=== PATIENT | male | born 1940 | race Caucasian/White ===

== ENCOUNTER 2018-06-30 08:48 | Outpatient (REF) | payer OTHER, SELFPAY ==
[2018-06-30 12:52] LABS: HCT 45.1 % (40.0-50.0); HGB 14.9 g/dL (13.5-17.5); Mean Corpuscular Hemoglobin 32.4 pg (27.0-33.0); Mean Platelet Volume 10.8 fL (8.0-11.0); Platelet Count 229 x1000/uL (130-400); RBC Distribution Width 12.7 % (11.8-14.1); White Blood Cell Count 6.94 k/cumm (4.4-10.8)
[2018-06-30 13:22] LABS: ALT 52 U/L (12-78); AST 42 U/L (15-37); Alkaline Phosphatase 97 U/L (46-116); Anion Gap 7.8 mmol/L (3-11); BUN 22 mg/dL (7-18); Bilirubin, Total 0.8 mg/dL (0.2-1.0); CO2 29.2 mmol/L (21.0-32.0); CREATININE 1.13 mg/dL (0.70-1.30); Calcium 9.5 mg/dL (8.5-10.1); Chloride 105 mmol/L (98-107); Cholesterol 229 mg/dL (50-200); Glucose 94 mg/dL (70-100); HDL Cholesterol 66 mg/dL (40-60); LDL CHOLESTEROL 126 mg/dL (<100); Potassium 4.6 mmol/L (3.5-5.1); Sodium 142 mmol/L (136-145); TSH (W/Ref FT4) 3.31 uIU/mL (0.358-3.74); Total Protein 7.4 g/dL (6.4-8.2); Triglyceride 157 mg/dL (30-150)
== END 2018-06-30 09:08 ==
LOC: NCHCN 08:48
PROVIDERS: PCP Family Medicine; Visit Provider Family Medicine
DX: E03.9 Hypothyroidism, unspecified (principal)
CPT/HCPCS: 80053; 80061; 83721; 85027; 84443

== ENCOUNTER → 2019-03-15 09:46 | Outpatient (BNVA) | payer MEDICARE, SELFPAY | PROVIDERS: PCP Family Medicine; Referring Provider Family Medicine; Visit Provider Student in an Organized Health Care Education/Training Program | DX: M65.332 Trigger finger, left middle finger (principal); M65.321 Trigger finger, right index finger | CPT/HCPCS: 99203; 99214 ==

== ENCOUNTER 2019-04-20 09:49 | Day surgery (SDC) | payer MEDICARE, SELFPAY ==
[2019-04-20 09:55] VITALS: BP 114/101; PULSE 58; RESP 16; TEMP 36.5; O2SAT 96
--- NOTE | 2019-04-20 12:28 | W.PM.DSUDISC ---
Discharge Plan Disposition Patient Disposition: HOME Condition: Good Discharge Details Reason For Visit: LMF trigger finger release Attending Provider: Heraclio Valera Primary Care Provider: Roxane Marti Home Meds and New Rx's Prescriptions: New acetaminophen 500 mg tablet 500 mg PO Q6H PRNQty: 60 RF: 0 Continued calcium carb and citrate-vitD3 1 EACH tablet extended release 1 ea PO BID RF: 0 ibuprofen 800 MG tablet 800 mg PO BID PRNQty: 180 RF: 1 levothyroxine 25 MCG tablet 25 mcg PO DAILY@0730 RF: 0 ascorbic acid (vitamin C) [Vitamin C] 500 MG tablet 1 tab PO DAILY RF: 0 glucosamine sulfate 2KCl 1,000 MG tablet 1 cap PO DAILY RF: 0 Depauw Oil-1000 1 EACH capsule 1 cap PO DAILY RF: 0 vitamin U17-jucow acid 1 EACH tablet 1 tab PO DAILY RF: 0 Discharge Instructions Stand Alone Forms: Moraima Amor Finger Release Referrals: Heraclio Valera MD [ [facility] STAFF PHYSICIAN] - Activity:: Activity as Tolerated Remove Dressings/Wound Care:: 48 hours Shower/Bathe:: 48 hours Diet:: As Tolerated Discharge Orders Discharge Orders: Discharge Order (Routine); Ordered 04/20/19 Ordered By: Elbert Otero DS: Diagnosis Discharge Diagnosis (1) Trigger finger, left middle finger: Status: Acute
[2019-04-20] MEDS: Sodium Bicarbonate 50 MEQ/50 ML VIAL (12:50)
[2019-04-20] MEDS: Lidocaine 1% Multi-Dose 50 ML VIAL (12:50)
[2019-04-20] MEDS: Bupivacaine 0.5% Pres-Free 30 ML VIAL (12:59)
--- NOTE | 2019-04-20 20:59 | W.PM.OP ---
Date of service: 04/20/19 Time of Service: 12:59 Operative Note DATE OF PROCEDURE: 04/20/19 PRE-OP DIAGNOSIS: Trigger Finger -right index finger POST-OP DIAGNOSIS: same PROCEDURE: Trigger Finger Release -right index finger SURGEON: Heraclio Valera ANESTHESIA: local PATHOLOGY: none sent COMPLICATIONS: None Patient was transported to: same day Patient's condition: stable Indications: I have seen John Paul in clinic for symptoms of a trigger finger. The catching, clicking, locking, and pain limited function. Over the last month or so he had lost the ability to flex and extend the digit. The diagnosis of trigger finger was evident. The symptoms had not responded to conservative measures. I discussed trigger finger release with the patient. I reviewed the risks of the procedure to include, but not limited to, bleeding, infection, pain, stiffness, incomplete release, damage to nerves or vessels, continued catching, recurrence. Despite these risks, the patient elected to proceed. Findings: There was a tightened A1 nivia which was released. There was a large amount of fluid within the flexor tendon sheath. The flexor tendons were inspected and the patient was able to move the finger without any catching, clicking, or locking. Procedure Description: John Paul was greeted in the preoperative holding area where the correct side was identified and marked. The consent was reviewed with the patient and signed. All questions were answered. John Paul was taken back to the operating room. The patient was placed into the supine position on the operating room table with the right arm on an arm board. All bony prominences were well padded. No prophylactic antibiotics were administered since this was a clean, elective hand surgical case. The right arm was then prepped with Chloraprep and draped in a standard fashion with stockinette and extremity drape. A timeout to confirm correct identity, side and site, procedure, allergies, anesthesia, and medical concerns was performed. The surgical site was marked as a longitudinal incision directly over the A1 nivia of the involved digit. This was confirmed with palpation during finger flexion. This area, overlying the metacarpal head, was then anesthetized with 1% Lidocaine. The patient tolerated this well and once the anesthetic had setup, the procedure began. A longitudinal incision was made through skin only, approximately 1cm. The deep tissues were dissected bluntly. Once the A1 nivia and flexor tendons were identified the soft tissue including neurovascular structures were retracted medially and laterally. There were no crossing structures over the A1 nivia. The proximal edge of the nivia was identified and the nivia was incised with tenotomy scissors. There was a release of the tendons once this was fully released. The tendons were then removed from the wound and inspected. Excess synovium was resected. The tendons were then returned and the patient was asked to move the finger into deep flexion and back to extension. There was no recreation of the pre-operative symptoms. The hand was then once more inspected for any A0 nivia or area of possible constriction. The wound was then irrigated and the skin was closed with a 4-0 Nylon. This was dressed with gauze and a Conform dressing. The patient tolerated the procedure well and was returned to the Same Day Surgery area in a stable condition suffering no known complication.
== END 2019-04-20 13:25 | disposition home or self-care (01) ==
PROVIDERS: PCP Family Medicine; Visit Provider Student in an Organized Health Care Education/Training Program
PROC: (CPT 26055; principal; 2019-04-20 11:00)
DX: M65.321 Trigger finger, right index finger (principal)
CPT/HCPCS: 26055

== ENCOUNTER → 2019-04-28 15:20 | Outpatient (BNVA) | payer MEDICARE, SELFPAY | PROVIDERS: PCP Family Medicine; Referring Provider Family Medicine; Visit Provider Student in an Organized Health Care Education/Training Program | DX: M65.321 Trigger finger, right index finger (principal); Z47.89 Encounter for other orthopedic aftercare; R20.0 Anesthesia of skin | CPT/HCPCS: 99213; L3908 ==

== ENCOUNTER → 2019-05-12 09:57 | Outpatient (BNVA) | payer MEDICARE, SELFPAY | PROVIDERS: PCP Family Medicine; Visit Provider Nurse Practitioner Adult Health | DX: G56.03 Carpal tunnel syndrome, bilateral upper limbs (principal); G62.9 Polyneuropathy, unspecified; G56.23 Lesion of ulnar nerve, bilateral upper limbs | CPT/HCPCS: 95911; 99203; 99214 ==

== ENCOUNTER 2019-05-12 11:29 | Outpatient (CLI) | payer MEDICARE, SELFPAY ==
[2019-05-12 13:14] LABS: Hemoglobin A1C 5.7 % (4.5-6.2); TSH 2.49 uIU/mL (0.36-3.74); Vitamin B12 538 pg/mL (193-986)
[2019-05-13 12:31] LABS: Albumin 63.7 % (55.8-66.1); Total Protein 7.2 g/dl (6.3-8.2)
== END 2019-05-12 11:49 ==
PROVIDERS: PCP Family Medicine; Visit Provider Nurse Practitioner Adult Health
DX: G62.9 Polyneuropathy, unspecified (principal); G56.03 Carpal tunnel syndrome, bilateral upper limbs; G56.23 Lesion of ulnar nerve, bilateral upper limbs
CPT/HCPCS: 36415; 95911; 99214; 82607; 83036; 84165; 84443

== ENCOUNTER 2020-05-11 09:32 | Outpatient (REF) | payer MEDICARE, SELFPAY ==
[2020-05-11 20:53] LABS: HCT 43.5 % (40.0-50.0); HGB 14.3 g/dL (13.5-17.5); MCH 32.2 pg (27.0-33.0); MCHC 32.9 % (32.0-36.0); MPV 10.8 fL (8.0-11.0); Platelet Count 218 10^3/uL (130-400); RBC 4.44 10^6/uL (4.36-5.78); RDW 11.7 % (11.8-14.1); RDW-SD 42.4 fL; WBC 6.08 10^3/uL (4.4-10.8)
[2020-05-11 21:13] LABS: ALT 21 U/L (16-63); AST 21 U/L (15-37); Alkaline Phosphatase 75 U/L (46-116); Anion Gap 6.2 mmol/L (3-11); BUN 25 mg/dL (7-18); CO2 27.8 mmol/L (21.0-32.0); CREATININE 0.97 mg/dL (0.70-1.30); Calcium 8.9 mg/dL (8.5-10.1); Calculated LDL 96 mg/dL (<100); Chloride 105 mmol/L (98-107); Cholesterol 175 mg/dL (<200); Glucose 100 mg/dL (74-106); HDL Cholesterol 57 mg/dL (40-60); Potassium 4.2 mmol/L (3.5-5.1); Sodium 139 mmol/L (136-145); TSH (W/Ref FT4) 2.91 uIU/mL (0.36-3.74); Total Protein 6.9 g/dL (6.4-8.2); Triglyceride 112 mg/dL (<150)
== END 2020-05-11 09:52 ==
LOC: NCHCN 09:32
PROVIDERS: PCP Family Medicine; Visit Provider Family Medicine
DX: E03.9 Hypothyroidism, unspecified (principal)
CPT/HCPCS: 80053; 80061; 85027; 84443

== ENCOUNTER → 2020-05-26 09:25 | Outpatient (BNVA) | payer MEDICARE, SELFPAY | PROVIDERS: PCP Family Medicine; Referring Provider Family Medicine; Visit Provider Surgery | DX: K43.2 Incisional hernia without obstruction or gangrene (principal); Z11.59 Encounter for screening for other viral diseases; Z85.09 Personal history of malignant neoplasm of other digestive organs | CPT/HCPCS: 99202; 99213 ==

== ENCOUNTER 2020-06-09 02:14 | Outpatient (CLI) | payer MEDICARE, SELFPAY ==
[2020-06-10 20:23] LABS: COVID-19 RT-PCR Result NEGATIVE (Negative)
== END 2020-06-09 02:34 ==
PROVIDERS: PCP Family Medicine; Visit Provider Surgery
DX: Z11.59 Encounter for screening for other viral diseases (principal); Z01.818 Encounter for other preprocedural examination
CPT/HCPCS: U0003

== ENCOUNTER 2020-06-14 07:59 | Day surgery (SDC) | payer MEDICARE, SELFPAY ==
[2020-06-14] VITALS (7 sets, daily range): BP systolic 136–161; BP diastolic 78–87; PULSE 50–58; RESP 12–16; TEMP 36.1–36.6; O2SAT 96–99
--- NOTE | 2020-06-14 06:53 | W.PM.OP ---
Date of service: 06/14/20 Time of Service: 11:04 Operative Note Operative Note DATE OF PROCEDURE: 06/14/20 PRE-OP DIAGNOSIS: Incisional hernia POST-OP DIAGNOSIS: same PROCEDURE: Incisional hernia repair with mesh SURGEON: Jodie Parks RESIDENTIAL PROGRAM WORKER: Tawny Monzon ANESTHESIA: GETA ESTIMATED BLOOD LOSS: 20 PATHOLOGY: none sent COMPLICATIONS: None Patient was transported to: PACU Patient's condition: stable Implants: Ventralex ST Hernia Patch: LOT [id number] REF [id number] EXP 2021-04-28 Indications: Mr. Rowley is a pleasant 79-year-old gentleman who is seen in the office today for a hernia. 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 He then underwent an open right hemicolectomy. He recently noted a small bulge right above his umbilicus. It is painful when he is working. He denies any nausea or vomiting. He denies any changes in bowel habits. He denies any chest pain, shortness of breath or difficulty walking up a flight of stairs. incisional Yes 3-4 weeks heavy lifting lying down denies chills, constipation, cramping, diarrhea, fever(s), nausea, vomiting or other Findings: small 2 cm opening just above the umbilicus and just to the right of midline incision Procedure Description: After informed consent was obtained the patient was taken to the operating room and placed in a supine position. Monitors and SCDs were applied and a timeout was done. The patient's name, date of , procedure type, procedure site, allergies to medications, preoperative antibiotic, and DVT prophylaxis were all reviewed. Fire risk was assessed. Anesthesia performed an US guided bilateral rectus sheath block. Please see their separate dictation. Next the abdomen was prepped and draped in a sterile surgical fashion. The defect was measured about 2 cm above the umbilicus and just to the right of the midline incision. the dermis was injected with 2% Lidocaine. An incision was made with a 10 blade measuring 4 cm. Dissection was done with cautery through the subcutaneous tissues down to the fascia. The hernia defect was identified and measured 2 cm . The hernia sac was opened and the peritoneum was swept for adhesions. There were no adhesions noted. A 6.5 cm round mesh was then placed under the peritoneum and secured in 4 quarters with 0 Proline. Once the mesh was secured the tissues were irrigated with some normal saline. No bleeding was identified. The fascia was closed over the mesh with 0 prolene running suture. The subcutaneous tissue was re-approximated with interrupted 3-0 vicryl. The dermis was re-approximated with a running 4-0 Vicryl. The skin was cleaned and dried and skin affix was applied. The patient was woken up and taken back to recovery in stable condition. There were no immediate complications. Sponge, instrument and needle counts were correct at the end of the case x2.
--- NOTE | 2020-06-14 06:55 | W.PM.DSUDISC ---
Discharge Plan Disposition Patient Disposition: HOME Condition: Good Discharge Details Reason For Visit: Incisional hernia Attending Provider: Jodie Parks Primary Care Provider: Roxane Marti Home Meds and New Rx's Prescriptions: Continued ketoconazole 2 % cream 1 applic topical BID RF: 0 cholecalciferol (vitamin D3) 25 mcg (1,000 unit) capsule 25 mcg PO DAILY RF: 0 ICaps AREDS 14,320-226-200 [id number] capsule 1 cap PO BID RF: 0 prednisolone acetate 1 % drops,suspension 1 drp ophthalmic (eye) DAILY RF: 0 ketorolac 0.4 % drops 1 drp ophthalmic (eye) Q6H RF: 0 dorzolamide 2 % drops 1 drp ophthalmic (eye) DAILY RF: 0 calcium carb and citrate-vitD3 1 EACH tablet extended release 1 ea PO BID RF: 0 levothyroxine 25 MCG tablet 25 mcg PO DAILY@0730 RF: 0 glucosamine sulfate 2KCl 1,000 MG tablet 1 cap PO DAILY RF: 0 [place] Oil-1000 1 EACH capsule 1 cap PO DAILY RF: 0 Discharge Instructions Instructions: Incisional Hernia (DC) Additional Instructions: Activity at Home after surgery: 1. Make sure you walk outside at least 4 times per day 2. You should be able to climb a flight of stairs 3. No driving while in pain or taking pain medications 4. No strenuous activity or heavy lifting for 4 weeks (open surgery) Diet, Nutrition, & wound healin. Avoid alcohol until after you are recovered from your surgery 2. Make sure to eat plenty of lean protein (meat, fish, eggs, cottage cheese, beans) 3. Eat a variety of fruits and vegetables. Eat plenty of high fiber foods to avoid constipation. 4. Drink plenty of liquids to stay hydrated and avoid constipation Pain Medications: 1. Tylenol 650 mg every 6 hours and Ibuprofen 600 mg every 6 hours as needed. May alternate between the 2 medications every 3 hours 2. If a narcotic has been prescribed take as directed only for breakthrough pain For Constipation: 1. Take Milk of Magnesia or MiraLax as needed for constipation Other: 1. You may shower daily. Do not scrub the incisions 2. Do not soak the incisions for 1 week 3. You may alternate ice and heat as needed for pain and swelling Wound Care: 1. Keep the incisions clean and dry Please call our office if you develop: 1. Fevers >101.5 2. Nausea or Vomiting 3. Worsening pain 4. Redness and thick discharge from the wounds If after hours please call the Hospital at and ask to speak to the on-call surgeon Referrals: Jodie Parks MD [ [facility] STAFF PHYSICIAN] - Activity:: no lifting >20 lb x 4 wks Remove Dressings/Wound Care:: Do Not Remove Shower/Bathe:: 24 hours Diet:: As Tolerated Discharge Orders Discharge Orders: Discharge Order (Routine); Ordered 06/14/20 Ordered By: Jodie Parks
[2020-06-14] MEDS: Lactated Ringers 1,000 ML 80 ML IV (08:48)
[2020-06-14] MEDS: Celecoxib 200 MG CAP PO (08:54)
[2020-06-14] MEDS: Acetaminophen 500 MG TAB 1000 MG PO (08:54)
[2020-06-14] MEDS: ceFAZolin 2 GM/50 ML BAG IVPB (10:12)
[2020-06-14] MEDS: Bupivacaine LIPOSOME/PF 133 MG/10 ML VIAL IJ (10:19)
[2020-06-14] MEDS: Bupivacaine 0.25% Pres-Free 30 ML VIAL (10:19)
[2020-06-14] MEDS: Lidocaine 2% Multi-Dose 50 ML VIAL (10:33)
== END 2020-06-14 13:16 | disposition home or self-care (01) ==
PROVIDERS: PCP Family Medicine; Visit Provider Surgery
PROC: (CPT 49560; principal; 2020-06-14 10:15)
DX: K43.2 Incisional hernia without obstruction or gangrene (principal); Z85.038 Personal history of other malignant neoplasm of large intestine; Z98.0 Intestinal bypass and anastomosis status
CPT/HCPCS: 49560; 49568; 76942; C1781; J0690; J2001; J2405

== ENCOUNTER → 2020-06-23 08:04 | Outpatient (BNVA) | payer MEDICARE, SELFPAY | PROVIDERS: PCP Family Medicine; Referring Provider Family Medicine; Visit Provider Student in an Organized Health Care Education/Training Program | DX: G56.22 Lesion of ulnar nerve, left upper limb (principal); G56.21 Lesion of ulnar nerve, right upper limb; G56.01 Carpal tunnel syndrome, right upper limb; G56.02 Carpal tunnel syndrome, left upper limb; M65.342 Trigger finger, left ring finger | CPT/HCPCS: 99213 ==

== ENCOUNTER → 2020-06-27 09:28 | Outpatient (BNVA) | payer MEDICARE, SELFPAY | PROVIDERS: PCP Family Medicine; Referring Provider Family Medicine; Visit Provider Surgery | DX: Z48.815 Encounter for surgical aftercare following surgery on the digestive system (principal) ==

== ENCOUNTER 2020-07-07 02:08 | Outpatient (CLI) | payer MEDICARE, SELFPAY ==
[2020-07-10 13:23] LABS: SARS-CoV-2 RNA Not Detected (NotDetected); SARS-CoV-2 RNA Source Nasal/Nares
== END 2020-07-07 02:28 ==
PROVIDERS: PCP Family Medicine; Visit Provider Student in an Organized Health Care Education/Training Program
DX: Z01.818 Encounter for other preprocedural examination (principal); M65.342 Trigger finger, left ring finger; G56.03 Carpal tunnel syndrome, bilateral upper limbs; G56.22 Lesion of ulnar nerve, left upper limb; Z11.59 Encounter for screening for other viral diseases
CPT/HCPCS: U0003

== ENCOUNTER 2020-07-12 08:28 | Day surgery (SDC) | payer MEDICARE, SELFPAY ==
--- NOTE | 2020-07-12 07:10 | W.PM.DSUDISC ---
Discharge Plan Disposition Patient Disposition: HOME Condition: Good Discharge Details Reason For Visit: Lt ring finger trigger,carpal, cubital tunnel Attending Provider: Heraclio Valera Primary Care Provider: Roxane Marti Home Meds and New Rx's Prescriptions: New hydrocodone-acetaminophen 5-325 mg tablet 1 tab PO Q6H PRN (Reason: severe pain) Qty: 6 RF: 0 acetaminophen 500 mg tablet 500 mg PO Q6H PRN (Reason: pain) Qty: 60 RF: 2 ibuprofen 600 mg tablet 600 mg PO TID PRN (Reason: pain) Qty: 60 RF: 2 Continued ketoconazole 2 % cream 1 applic topical BID RF: 0 cholecalciferol (vitamin D3) 25 mcg (1,000 unit) capsule 25 mcg PO DAILY RF: 0 ICaps AREDS [id number] capsule 1 cap PO BID RF: 0 prednisolone acetate 1 % drops,suspension 1 drp ophthalmic (eye) DAILY RF: 0 ketorolac 0.4 % drops 1 drp ophthalmic (eye) Q6H RF: 0 dorzolamide 2 % drops 1 drp ophthalmic (eye) DAILY RF: 0 calcium carb and citrate-vitD3 1 EACH tablet extended release 1 ea PO BID RF: 0 levothyroxine 25 MCG tablet 25 mcg PO DAILY@0730 RF: 0 glucosamine sulfate 2KCl 1,000 MG tablet 1 cap PO DAILY RF: 0 [place] Oil-1000 1 EACH capsule 1 cap PO DAILY RF: 0 Discharge Instructions Additional Instructions: Trigger finger, Cubital and Carpal Tunnel Decompression Discharge Instructions Activity: You should stay in the sling for the first 2 weeks. You may come out of the sling for gentle motion and hygiene but should largely remain in the sling to allow the incision site to heal. Gentle motion of the elbow, hand, wrist, and fingers is okay and encouraged after the first few days, but no repetitive activites nor heavy lifting. You may apply ice. Medications: - You should take Tylenol and Ibuprofen around the clock. - You have been prescribed Hydrocodone for breakthrough pain. Dressings: - The initial surgical dressing should stay in place for 3 days. It may then be removed and kept clean and dry. You should cover with a light gauze dressing. - You may shower after 3 days and get the wound wet. Follow-up: 10 days Referrals: Heraclio Valera MD [ [facility] STAFF PHYSICIAN] - Equipment/Supplies: Sling Activity:: Elevate Remove Dressings/Wound Care:: 72 hours Shower/Bathe:: 72 hours Diet:: As Tolerated Discharge Orders Discharge Orders: Discharge Order (Routine); Ordered 07/12/20 Ordered By: Camryn Sousa DS: Diagnosis Discharge Diagnosis (1) Trigger finger, left ring finger: Status: Acute (2) Left carpal tunnel syndrome: Status: Acute (3) Cubital tunnel syndrome on left: Status: Acute
[2020-07-12 08:41] VITALS: BP 127/82; PULSE 60; RESP 18; TEMP 36.2; O2SAT 96
[2020-07-12] MEDS: Lactated Ringers 1,000 ML 80 ML IV (09:40)
[2020-07-12] MEDS: ceFAZolin 2 GM/50 ML BAG IVPB (10:24)
[2020-07-12] MEDS: Sodium Bicarbonate 50 MEQ/50 ML VIAL (10:41)
[2020-07-12] MEDS: Bupivacaine 0.25% Pres-Free 30 ML VIAL (10:53)
[2020-07-12] MEDS: EPINEPHrine 30 MG/30 ML VIAL (10:53)
[2020-07-12 11:41] VITALS: BP 117/74; PULSE 56; RESP 14; TEMP 35.7; O2SAT 98
[2020-07-12 11:46] VITALS: BP 112/78; PULSE 59; RESP 14; TEMP 35.7; O2SAT 98
[2020-07-12 11:51] VITALS: BP 120/74; PULSE 57; RESP 14; TEMP 35.7; O2SAT 96
--- NOTE | 2020-07-12 11:51 | ROE_ITS ---
Date of service: 07/12/20 Time of Service: 11:51 Operative Note Operative Note DATE OF PROCEDURE: 07/12/20 PRE-OP DIAGNOSIS: Left Carpal Tunnel and Left Cubital Tunnel Syndrome and Left Ring Finger Trigger Finger POST-OP DIAGNOSIS: same PROCEDURE: 1. Left Endoscopic Carpal Tunnel Release 2. Left Cubital Tunnel Decompression with Anterior Subcutaneous Transposition 3. Left Ring Finger Trigger Finger Release SURGEON: Heraclio Valera HEALTH NURSE: Deanna Goldman ANESTHESIA: GETA ESTIMATED BLOOD LOSS: 5 PATHOLOGY: none sent TOURNIQUET TIME: 32 COMPLICATIONS: None Patient was transported to: PACU Patient's condition: stable Indications: John Paul is a 79-year-old male who has had symptoms of carpal and cubital tunnel syndrome. Nonoperative treatment options had been trialed. Nerve conduction studies identified the carpal and cubital tunnel as the point of compression. He also had a triggering ring finger which was limiting his function. Given failure of nonoperative treatments and persistent symptoms, I offered operative intervention. I reviewed the technical details of a carpal tunnel release and cubital tunnel decompression with possible anterior subcutaneous transposition. I also discussed trigger finger release. I reviewed the risk of the procedure to include bleeding, infection, pain, stiffness, tendon instability, damage to the superficial radial nerve, and complete release. Despite these risks, the patient elected to proceed. Findings: The carpal tunnel was release with a standard endoscopic technique without difficulty and excellent visualization. There was a tightened cubital tunnel with a highly unstable ulnar nerve which was able to be subluxed prior to complete decompression. The ulnar nerve was release from the first motor branch distally through the [place] proximally. The ulnar nerve was transposed anteriorly in a subcutaneous fashion. The left ring finger A1 nivia was released. Procedure Description: John Paul was greeted in the preoperative holding area where the correct side was identified and marked. The consent was reviewed with the patient and signed. The history and physical was updated. All questions were answered. He was taken back to the operating room. The patient was placed into the supine position on the operating room table with the left arm on an arm board. A nonsterile tourniquet was placed high onto the arm, into the axilla. All bony prominences were well padded. Prophylactic antibiotics in the form of Cefazolin were administered. The left arm was then prepped with Chloraprep and draped in a standard fashion with stockinette and extremity drape. A timeout to confirm correct identity, side and site, procedure, allergies, anesthesia, and medical concerns was performed. The surgical site was marked in the volar wrist creases in line with the radial border of the fourth ray. This area was anesthetized with approximately 6cc of 1% Lidocaine. The limb was then exsanguinated with an Esmarch. The skin was incised with a 15 blade, approximately 1cm. The skin only was cut and the deeper tissue was dissected bluntly with a tenotomy scissor, avoiding passing nerve and venous structures. The fascia was penetrated and opened bluntly. A two-prong skin hook was placed under this proximal fascial edge. A series of hamate finders were used to identify and dilate the carpal tunnel. Synovial elevator was used to free synovial attachments to the underside of the transverse carpal ligament. My thumb was kept in the palm to kelly the distal extent of the carpal tunnel and correctly position the hand. The Microaire endoscope was inserted without difficulty and without resistance. Excellent visualization showed horizontally running fibers of the transverse carpal ligament (TCL). The distal extent of the TCL was visualized and the end of the scope palpated with the thumb. The blade was elevated and withdrawn from distal to proximal. The TCL was split into two flaps. The endoscope was reinserted to confirm complete release and any remnant ligament was incised. The scope was withdrawn and the proximal aspect of the carpal tunnel was grossly inspected and appeared release with the median nerve visible. The antebrachial fascia at the level of the wrist was then freed from the overlying skin and then the underlying median nerve with blunt dissection. This was transected longitudinally for about 3cm proximal to the wrist incision. The wound was then irrigated with easy flow of irrigant distally and proximally. The incision was closed with a single 4-0 Nylon suture. I then proceeded with the ring finger trigger finger release. The proposed surgical site was anesthetized with 1% lidocaine. A 1 cm linear incision was made overlying the A1 nivia. Sharp dissection was carried down through the skin and the deep tissues were dissected bluntly. The A1 nivia was easily identified. Starting at the proximal edge I released with the scissors. This was inspected visually and noted to be completely released. The tendons were removed from the hand. They did show some synovitis which was resected sharply. The wound was then inspected for any other signs of restriction to motion of the flexor tendons. None was found. The wound was irrigated. The skin was then closed with a single 4-0 nylon suture. The wounds of the finger and wrist were dressed with Xeroform, Gauze, Kerlix. Attention was then turned to the medial epicondyle. The surgical site was drawn on the skin as was the medial epicondyle borders. The planned surgical field was anesthetized with 1% Lidocaine with epinephrine. The skin was incised only. The deep tissue and subcutaneous fat was dissected with a tenotomy scissors trying to protect any branches of the medial antebrachial cutaneous nerve. Any branches that were identified were retracted out of the way. The ulnar nerve was palpated and identified. A small window into the cubital tunnel, sheath overlying the nerve, was created and the nerve was able to be palpated with the [place]. A Metzenbaum scissor was then used to open up the sheath starting with Moore's ligament. I then worked distal over the ulnar nerve releasing any constraints against the nerve all the way to the fascia of the FCU muscle belly. This muscle belly was bluntly all the way down to the first motor branch of the ulnar nerve and the overlying fascia was incised. Likewise starting there at the medial epicondyle, I proceeded to work proximally to release any constraints over the ulnar nerve. This was taken all the way to the arcade of [place]. The medial intermuscular septum was also palpated and any sharp edges against the ulnar nerve were resected and released. After fully releasing the nerve it was inspected visually. I was also able to palpate the nerve fully and reach one finger up into the proximal and distal aspects to make sure there were no constraints against the nerve. A freer elevator was also used to slide easily against the ulnar nerve without any points of constriction. The arm was then taken through range of motion. The ulnar nerve did sublux/dislocate out of its groove behind the lateral epicondyle. Therefore, I performed an anterior subcutaneous transposition. The nerve was dissected away of any of its underlying attachments. Distal branches were protected and vasculature running at the nerve was preserved. This was freed up proximally distally so she was able to move anteriorly without any particular sites of compression or kinking. I then raised a flap from the flexor pronator origin based off of the medial most aspect of the medial epicondyle. The nerve is transposed anteriorly and held in this position while I fixed the fascial flap to the dermis underlying location of the medial condyle. This was secured with a #0 Vicryl. The nerve was found to be loose anteriorly within the elbow without any side compression. This was then thoroughly irrigated. The tourniquet was then deflated. Any areas of bleeding were cauterized with bipolar electrocautery. The wound was thoroughly irrigated. The deep tissue was closed with a 3-0 Vicryl. The skin was closed with a 4-0 nylon. The wound was dressed with Xeroform, 4 x 4's, ABD, Kerlix and an Arslan wrap. John Paul was placed into a sling. He was transferred back to the PACU in a stable condition.
[2020-07-12 11:56] VITALS: BP 107/72; PULSE 56; RESP 14; TEMP 35.7; O2SAT 97
[2020-07-12 12:32] VITALS: BP 135/74; PULSE 59; RESP 18; TEMP 36.2; O2SAT 95
== END 2020-07-12 13:02 | disposition home or self-care (01) ==
LOC: SUR 08:29
PROVIDERS: PCP Family Medicine; Visit Provider Student in an Organized Health Care Education/Training Program
PROC: 01N54ZZ Release Median Nerve, Percutaneous Endoscopic Approach (ICD-10-PCS; CPT 29848; principal; 2020-07-12 11:15)
PROC: (CPT 64718; 2020-07-12 11:15)
PROC: (CPT 26055; 2020-07-12 11:15)
DX: M65.342 Trigger finger, left ring finger (principal); G56.02 Carpal tunnel syndrome, left upper limb; G56.22 Lesion of ulnar nerve, left upper limb
CPT/HCPCS: 64718; 29848; 26055; J0690; J2405

== ENCOUNTER → 2020-07-21 11:30 | Outpatient (BNVA) | payer MEDICARE, SELFPAY | PROVIDERS: PCP Family Medicine; Referring Provider Family Medicine; Visit Provider Student in an Organized Health Care Education/Training Program | DX: Z47.89 Encounter for other orthopedic aftercare (principal); G56.02 Carpal tunnel syndrome, left upper limb; G56.22 Lesion of ulnar nerve, left upper limb; M65.342 Trigger finger, left ring finger ==

== ENCOUNTER → 2020-08-03 08:00 | Outpatient (BNVA) | payer MEDICARE, SELFPAY | PROVIDERS: PCP Family Medicine; Referring Provider Family Medicine; Visit Provider Student in an Organized Health Care Education/Training Program | DX: Z47.89 Encounter for other orthopedic aftercare (principal) ==

== ENCOUNTER → 2020-09-04 08:32 | Outpatient (BNVA) | payer MEDICARE, SELFPAY | PROVIDERS: PCP Family Medicine; Referring Provider Family Medicine; Visit Provider Student in an Organized Health Care Education/Training Program | DX: Z47.89 Encounter for other orthopedic aftercare (principal) ==

== ENCOUNTER → 2020-10-16 09:57 | Outpatient (BNVA) | payer MEDICARE, SELFPAY | PROVIDERS: PCP Family Medicine; Referring Provider Family Medicine; Visit Provider Student in an Organized Health Care Education/Training Program | DX: Z47.89 Encounter for other orthopedic aftercare (principal); G56.02 Carpal tunnel syndrome, left upper limb; G56.22 Lesion of ulnar nerve, left upper limb | CPT/HCPCS: 99441 ==

== ENCOUNTER → 2021-01-08 14:07 | Outpatient (BNVA) | payer MEDICARE, SELFPAY | PROVIDERS: PCP Family Medicine; Referring Provider Student in an Organized Health Care Education/Training Program; Visit Provider Nurse Practitioner Adult Health | DX: G56.02 Carpal tunnel syndrome, left upper limb (principal); G56.22 Lesion of ulnar nerve, left upper limb | CPT/HCPCS: 95886; 95909; 99214; 99215 ==

== ENCOUNTER → 2021-01-25 10:48 | Outpatient (BNVA) | payer MEDICARE, SELFPAY | PROVIDERS: PCP Family Medicine; Referring Provider Family Medicine; Visit Provider Student in an Organized Health Care Education/Training Program | DX: G56.02 Carpal tunnel syndrome, left upper limb (principal); G56.22 Lesion of ulnar nerve, left upper limb; Z98.890 Other specified postprocedural states | CPT/HCPCS: 99213 ==

== ENCOUNTER 2021-03-14 12:52 | Outpatient (REF) | payer MEDICARE, SELFPAY ==
[2021-03-14 21:53] LABS: Abs Immature Grans 0.01 10^3/uL (0.0-0.06); Absolute Basophil Count 0.04 10^3/uL (0.0-0.2); Absolute Eosinophil Count 0.13 10^3/uL (0.0-0.7); Absolute Lymphocyte Count 2.74 10^3/uL (1.2-3.4); Absolute Monocyte Count 0.72 10^3/uL (0.1-0.8); Absolute Neutrophil Count 2.96 10^3/uL (1.2-6.7); Basophils % 0.6; HCT 41.6 % (40.0-50.0); HGB 13.8 g/dL (13.5-17.5); Immature Grans % 0.2; Lymphocytes % 41.5; MCH 32.3 pg (27.0-33.0); MCHC 33.2 % (32.0-36.0); MCV 97.4 fL (80-95); Monocytes % 10.9; Neutrophils % 44.8; Nucleated RBC 0 %; RBC 4.27 10^6/uL (4.36-5.78); RDW 11.8 % (11.8-14.1); RDW-SD 42.5 fL
[2021-03-14 22:21] LABS: ALT 81 U/L (16-63); AST 60 U/L (15-37); Albumin 3.9 g/dL (3.4-5.0); Alkaline Phosphatase 172 U/L (46-116); Anion Gap 8.1 mmol/L (3-11); BUN 25 mg/dL (7-18); Bilirubin, Total 0.8 mg/dL (0.2-1.0); CO2 24.9 mmol/L (21.0-32.0); Chloride 107 mmol/L (98-107); Glucose 96 mg/dL (74-106); NT-proBNP 182 pg/mL (<300); Potassium 4.8 mmol/L (3.5-5.1); Sodium 140 mmol/L (136-145); TSH (W/Ref FT4) 3.09 uIU/mL (0.36-3.74); Total Protein 7.1 g/dL (6.4-8.2)
[2021-03-15 16:48] LABS: T3,Free 3.6 pg/mL (2.8-5.3)
== END 2021-03-14 12:53 | disposition home or self-care (01) ==
LOC: NCHCN 12:52
PROVIDERS: PCP Family Medicine; Visit Provider Family Medicine
DX: R53.83 Other fatigue (principal)
CPT/HCPCS: 80053; 83880; 84443; 84481; 85025

== ENCOUNTER 2021-03-28 16:09 | Outpatient (REF) | payer MEDICARE, SELFPAY ==
[2021-03-28 15:40] LABS: ALT 53 U/L (16-63); AST 30 U/L (15-37); Albumin 3.7 g/dL (3.4-5.0); Alkaline Phosphatase 146 U/L (46-116); Bilirubin, Direct 0.2 mg/dL (0.0-0.2); Bilirubin, Total 0.8 mg/dL (0.2-1.0); Total Protein 6.9 g/dL (6.4-8.2)
== END 2021-03-28 16:10 | disposition home or self-care (01) ==
LOC: NCHCN 16:09
PROVIDERS: PCP Family Medicine; Visit Provider Family Medicine
DX: Z87.898 Personal history of other specified conditions (principal)
CPT/HCPCS: 80076

== ENCOUNTER 2021-04-23 07:05 | Emergency (ER) | payer MEDICARE, SELFPAY ==
[2021-04-23 07:09] VITALS: BP 138/93; PULSE 66; RESP 18; TEMP 36.1; O2SAT 99
--- NOTE | 2021-04-23 07:30 | DI.US_ITS ---
Exam(s) US LOWER EXTREMITY VENOUS LT EXAM: US LOWER EXTREMITY VENOUS LT CLINICAL HISTORY: back pain, LLeg swelling TECHNIQUE: Grayscale, color, and doppler imaging of the deep venous system of the left lower extremi ty was performed. COMPARISON: US US OR ANESTHESIA from 06/14/2020 FINDINGS: There is no evidence of intraluminal thrombus and there is normal compression and augmentation demons trated within the common femoral vein, femoral vein, and popliteal vein. In the ipsilateral calf the interrogated veins also exhibit normal compression/ augmentation properti es. The ipsilateral saphenofemoral junction is patent. IMPRESSION: 1. No evidence of DVT in the left lower extremity. DATA REPOSITORY:
--- NOTE | 2021-04-23 07:30 | DI.RAD_ITS ---
Exam(s) XR LUMBAR SPINE COMPLETE EXAM: XR LUMBAR SPINE COMPLETE CLINICAL HISTORY: back pain. TECHNIQUE: 2D digital imaging was performed. COMPARISON: No exams were available for comparison FINDINGS: There is no evidence of fracture. There is advanced disc space narrowing at L5-S1 level.. There is mild degenerative anterolisthesis of L4 upon L5 due to facet arthropathy. Also mild disc space narro wing at L3-4 level. There is an element of retrolisthesis of L2 relative to L3. The posterior arely x of L2 is 7 millimeters behind the posterior cortex of L3. There may be significant canal stenosis at this level. Only mild degenerative changes in the facet joints at this level evident. L1-2 disc space exhibits preserved height. T12-L1 level exhibits normal disc height. IMPRESSION: Degenerative disc disease, most prominent at L5-S1 level. Retrolisthesis of L2 upon L3, approximately 7 millimeters Mild anterolisthesis of L4 upon L5 due to facet arthropathy DATA REPOSITORY: RADIATION DOSE DELIVERED:
--- NOTE | 2021-04-23 07:30 | DI.RAD_ITS ---
Exam(s) XR THORACIC SPINE COMPLETE EXAM: XR THORACIC SPINE COMPLETE CLINICAL HISTORY: back pain. TECHNIQUE: 2D digital imaging was performed. COMPARISON: CR XR LUMBAR SPINE COMPLETE from 04/23/2021 CR XR LUMBAR SPINE COMPLETE from 04/23/2021 FINDINGS: Mild scoliosis convex left. There are no compression fracture or listhesis nor prominent disc space narrowing in the thoracic spine.. No osseous lesions. No abnormal widening of the paraspinal lines. Bone density normal. IMPRESSION: DATA REPOSITORY: RADIATION DOSE DELIVERED:
--- NOTE | 2021-04-23 07:41 | ED.GENADUL_ITS ---
Discharge Plan Disposition Patient Disposition: HOME Condition: Improving Discharge Details Clinical Impression: Spasm of back muscles Primary Care Provider: Roxane Marti ED Provider: Sheldon Kern Home Meds and New Rx's Prescriptions: New methocarbamol 500 mg tablet 500 mg PO Q6H PRN (Reason: Back pain or spasm) Qty: 20 RF: 0 Continued cholecalciferol (vitamin D3) 25 mcg (1,000 unit) capsule 25 mcg PO DAILY RF: 0 ICaps AREDS 14,320-226-200 apoa-cs-tcmg capsule 1 cap PO BID RF: 0 levothyroxine 25 MCG tablet 25 mcg PO DAILY@0730 RF: 0 glucosamine sulfate 2KCl 1,000 MG tablet 1 cap PO DAILY RF: 0 Deal Oil-1000 1 EACH capsule 1 cap PO DAILY RF: 0 Discontinued oxycodone-acetaminophen 5-325 mg tablet 0.5 tab PO Q4H PRN PRNRF: 0 No Action calcium carb and citrate-vitD3 1 EACH tablet extended release 1 ea PO BID RF: 0 Discharge Instructions Instructions: Muscle Spasm (ED) Additional Instructions: Please start taking oxycodone. May continue Aleve and also may use Tylenol as needed for pain. Follow-up with physical therapy as prescribed. Robaxin 500 mg every 6 hours during the day, may use 1000 mg at bedtime. Warm/moist heat will aid in speeding blood flow to the area. Return to the emergency department for worsening pain, or any other acute concerns. 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 Minimally improved with Aleve, took 4 tablets of oxycodone with what he states was no relief and only constipation. Also has noted recent left leg swelling, and has had pending repeat LFTs that were abnormal. On exam the patient has diffuse muscular soreness to palpation with lumbar muscular spasm present. Normal motor, sensory, reflexes of bilateral lower extremity. His will note a distant history of a bone out of place in his back. Will obtain screening x-ray, rule out DVT with ultrasound given his edematous left leg, and obtain repeat labs given reported history of a transaminitis. He will benefit from both physical therapy and a trial of Robaxin for muscle relaxation. Patient's blood work is reassuring and his LFTs have normalized versus March. X- ray note degenerative disease.. Ultrasound of the leg no evidence of DVT. Discussed outpatient management of lumbar and thoracic muscular pain and spasm including medication and physical therapy. Lab Data Lab results reviewed: Yes I reviewed the patient's lab results. Labs: Laboratory Results - last 24 hr 04/23/21 04/23/21 07:50 07:50 WBC 8.49 RBC 4.35 L Hgb 13.8 Hct 42.3 MCV 97.2 H MCH 31.7 MCHC 32.6 RDW 12.2 Plt Count 256 MPV 9.9 Sodium 140 Potassium 4.2 Chloride 103 Carbon Dioxide 28.4 Anion Gap 8.6 BUN 21 H Creatinine 1.0 Estimated GFR/1.73 m2 >= 60.00 Glucose 99 Calcium 9.2 Total Bilirubin 0.5 AST 28 ALT 24 Alkaline Phosphatase 136 H Total Protein 8.0 Albumin 3.9 HPI General Mode of arrival: ambulatory . Date/Time Provider Initiated Documentation: 04/23/21 07:09 . Limitations to Documentation: no limitations . Information obtained by: patient and family . History of Present Illness 80 year old M presents to the emergency department with the chief complaint of Diffuse back pain for 1 week, described as moderate, Quality is described as dull and constant, and is localized to the back. Patient reports no radiation. Patient started experiencing this day(s) and it has been intermittent. other things that improve symptom(s), (Improved through the course of the day) No exacerbating factors reported . Patient did receive the following treatments prior to arrival, NSAID Related Data Home Medications Medication Instructions Recorded Confirmed calcium carb and citrate-vitD3 1 ea PO BID 01/24/16 04/23/21 Deal Oil-1000 1 cap PO DAILY 02/12/17 04/23/21 glucosamine sulfate 2KCl 1 cap PO DAILY 02/12/17 04/23/21 levothyroxine 25 mcg PO DAILY@0730 07/09/17 04/23/21 cholecalciferol (vitamin D3) 25 25 mcg PO DAILY 05/23/20 04/23/21 mcg (1,000 unit) capsule vitamins A,C,G-okci-hlnidn 14,320 1 cap PO BID 05/23/20 04/23/21 unit-226 mg-200 unit capsule methocarbamol 500 mg PO Q6H PRN #20 tab 04/23/21 Previous Rx's Medication Instructions Recorded methocarbamol 500 mg PO Q6H PRN #20 tab 04/23/21 Allergies Allergy/AdvReac Type Severity Reaction Status Date / Time codeine Allergy Intermediate Skin Rash Unverified 04/23/21 07:14 doxycycline Allergy made hands Unverified 04/23/21 07:14 feel like they were burning up General Stated Complaint: Nk/Back Pain NICK: 4 Review of Systems Narrative: No recent illness. Constipated but with flatus and stool. No lower extremity weakness, numbness. Left lower extremity has been swollen. No chest pain or shortness of breath. Immunized against COVID-19. 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 states his r eye he had a leaky vessel, I had to have shots in my eye, and I've been seeing a Retina Specialist in [place] Carotid artery stenosis Pt states, No I've never had any problems, there never have been Carpal tunnel syndrome Chronic headaches Chronic neck pain Cognitive impairment possible early alzheimers Cubital tunnel syndrome on right Diverticulosis (04/24/16) Heart burn Hemorrhoids Hernia, incisional, with obstruction (06/26/15) Hypercholesterolemia Hypothyroid Lung nodule Mild cognitive impairment (04/17/16) OA (osteoarthritis) of finger Osteopenia Paresthesia Plantar fasciitis Polyarthralgia Polyp of colon (07/31/07) 1 hyperplastic polyp Positive PALAK (antinuclear antibody) Raynauds disease Right carpal tunnel syndrome Right trigger finger Sexual dysfunction Shoulder pain cuff tendonosis w/ impingement syndrome-left shoulder Tinea corporis Trigger finger of right thumb (04/19/15) Varicosities of leg Vitamin D deficiency Surgical History Appendectomy (03/01/09) Colonoscopy - IV Sedation (04/23/16) Cubital tunnel syndrome on left s/p ulnar nerve decompression and anterior transposition DOS:07/12/2020 Hemicolectomy (~04/2009) RIGHT History of arthroscopy of left knee History of arthroscopy of right knee History of incisional hernia repair (~06/14/20) Left carpal tunnel syndrome s/p left ECTR DOS:07/12/2020 Repair of inguinal hernia RIGHT Trigger Finger release Trigger finger, left ring finger s/p release DOS:07/12/2020 Trigger finger, right index finger S/P release 04/20/2019 Vasectomy Family History Mother Ruptured appendix Father Asthma Sister Essential hypertension Hyperlipidemia Brother Hyperlipidemia Grandfather No problems noted. Grandfather No problems noted. Grandmother Essential hypertension Grandmother Diabetes Social History Smoking/Tobacco Use Status: Never Smoking risk assessment performed?: Yes Alcohol Intake: current Alcohol Intake frequency: a few times a week Alcohol type: beer and hard liquor Drug use: Never Substance use type: does not use Do you feel safe at home: Yes Do you feel safe in your relationship?: Yes Exam Narrative Exam Narrative: GEN: awake, alert, oriented 3. Pleasant, well groomed, interactive. HEAD: Normocephalic, atraumatic ENT: Mucous membranes moist, oropharynx unremarkable, External ear exam unremarkable EYES: PERRL, EOMI NECK: Full ROM, no LOUIE, no menigismus CHEST/RESP: Nontender, clear to auscultation bilateral, no wheeze/rhonchi/rales CARDIOVASCULAR: RRR, no murmur, rub lalo. 2+ Rad pulse bilateral ABDOMEN: Soft, nontender, no mass. +Bowel sounds Back: No midline tenderness, step-off or deformity present. There is bilateral lower thoracic and lumbar muscular spasm and tenderness present. EXT: Full ROM, left ankle edematous 1-2+, right lower extremity unremarkable. Motor normal throughout. Sensation intact throughout including saddle distri bution, 1+ patellar reflex bilaterally. Normal great toe proprioception, no rash Neuro: Grossly normal neurologic exam, conversant, interactive. Psych: Speech fluent, thoughts congruent, affect normal Course Vital Signs Vital signs: Vital Signs Temperature 36.1 C L 04/23/21 07:09 Pulse 66 04/23/21 07:09 Respiratory Rate 18 04/23/21 07:09 Blood Pressure 138/93 H 04/23/21 07:09 Pulse Oximetry 99 04/23/21 07:09 Temperature 36.1 C L 04/23/21 07:09 Temperature Source Temporal Artery Scan 04/23/21 07:09 Pulse 66 04/23/21 07:09 Respiratory Rate 18 04/23/21 07:09 Respiratory Effort Non-Labored 04/23/21 07:16 Blood Pressure 138/93 H 04/23/21 07:09 Blood Pressure Position Sitting 04/23/21 07:09 Pulse Oximetry 99 04/23/21 07:09 Oxygen Delivery Method Room Air 04/23/21 07:09 Oxygen Flow Rate 0 04/23/21 07:09 Pain Level 8 04/23/21 07:36
[2021-04-23] MEDS: Methocarbamol 500 MG TAB 1000 MG PO (07:54)
[2021-04-23 07:58] LABS: HCT 42.3 % (40.0-50.0); HGB 13.8 g/dL (13.5-17.5); MCH 31.7 pg (27.0-33.0); MCHC 32.6 % (32.0-36.0); MCV 97.2 fL (80-95); MPV 9.9 fL (8.0-11.0); Platelet Count 256 10^3/uL (130-400); RBC 4.35 10^6/uL (4.36-5.78); RDW 12.2 % (11.8-14.1); WBC 8.49 10^3/uL (4.4-10.8)
[2021-04-23 08:11] LABS: ALT 24 U/L (16-63); AST 28 U/L (15-37); Albumin 3.9 g/dL (3.4-5.0); Alkaline Phosphatase 136 U/L (46-116); Anion Gap 8.6 mmol/L (3-11); BUN 21 mg/dL (7-18); Bilirubin, Total 0.5 mg/dL (0.2-1.0); CO2 28.4 mmol/L (21.0-32.0); Calcium 9.2 mg/dL (8.5-10.1); Chloride 103 mmol/L (98-107); Glucose 99 mg/dL (74-106); Potassium 4.2 mmol/L (3.5-5.1); Sodium 140 mmol/L (136-145)
[2021-04-23 14:39] LABS: TSH (W/Ref FT4) 4.93 uIU/mL (0.36-3.74)
[2021-04-23 14:59] LABS: FREE T4 1.18 ng/dL (0.76-1.46)
== END 2021-04-23 11:27 | disposition home or self-care (01) ==
PROVIDERS: Emergency Provider Emergency Medicine; PCP Family Medicine
DX: M62.830 Muscle spasm of back (principal); R60.0 Localized edema
CPT/HCPCS: 36415; 80053; 85027; 99284; 72072; 72110; 84439; 84443; 93971

== ENCOUNTER 2021-04-25 16:02 | Outpatient (REF) | payer MEDICARE, SELFPAY ==
[2021-04-26 17:20] LABS: PSA, Screening 1.1 ng/mL (0.0-6.5)
== END 2021-04-25 16:03 | disposition home or self-care (01) ==
LOC: NCHCN 16:02
PROVIDERS: PCP Family Medicine; Visit Provider Family Medicine
DX: N40.0 Benign prostatic hyperplasia without lower urinary tract symptoms (principal); Z12.5 Encounter for screening for malignant neoplasm of prostate
CPT/HCPCS: 84153

== ENCOUNTER 2021-05-28 15:03 | Outpatient (REF) | payer MEDICARE, SELFPAY ==
[2021-05-28 15:36] LABS: ALT 27 U/L (16-63); AST 35 U/L (15-37); Albumin 3.4 g/dL (3.4-5.0); Alkaline Phosphatase 117 U/L (46-116); Anion Gap 5.3 mmol/L (3-11); BUN 15 mg/dL (7-18); Bilirubin, Total 0.7 mg/dL (0.2-1.0); CO2 29.7 mmol/L (21.0-32.0); Calcium 8.9 mg/dL (8.5-10.1); Chloride 107 mmol/L (98-107); Glucose 93 mg/dL (74-106); Potassium 5.1 mmol/L (3.5-5.1); Sodium 142 mmol/L (136-145); TSH (W/Ref FT4) 4.62 uIU/mL (0.36-3.74); Total Protein 7.3 g/dL (6.4-8.2)
[2021-05-28 16:04] LABS: FREE T4 1.19 ng/dL (0.76-1.46)
== END 2021-05-28 15:04 | disposition home or self-care (01) ==
LOC: NCHCN 15:03
PROVIDERS: PCP Family Medicine; Visit Provider Family Medicine
DX: E03.8 Other specified hypothyroidism (principal)
CPT/HCPCS: 80053; 84439; 84443

== ENCOUNTER 2021-07-12 09:13 | Outpatient (REF) | payer MEDICARE, SELFPAY ==
[2021-07-13 08:50] LABS: TSH (W/Ref FT4) 1.54 uIU/mL (0.36-3.74)
== END 2021-07-12 09:14 | disposition home or self-care (01) ==
LOC: NCHCN 09:13
PROVIDERS: PCP Family Medicine; Visit Provider Family Medicine
DX: R53.83 Other fatigue (principal); E03.9 Hypothyroidism, unspecified
CPT/HCPCS: 84443

== ENCOUNTER 2021-07-31 21:49 | Outpatient (REF) | payer MEDICARE, SELFPAY ==
[2021-07-31 22:19] LABS: HCT 40.9 % (40.0-50.0); HGB 13.4 g/dL (13.5-17.5); MCH 30.7 pg (27.0-33.0); MCHC 32.8 % (32.0-36.0); MCV 93.6 fL (80-95); MPV 10.8 fL (8.0-11.0); Platelet Count 275 10^3/uL (130-400); RBC 4.37 10^6/uL (4.36-5.78); RDW 13.4 % (11.8-14.1); RDW-SD 45.8 fL; WBC 10.98 10^3/uL (4.4-10.8)
[2021-07-31 22:30] LABS: ALT 25 U/L (16-63); AST 30 U/L (15-37); Albumin 3.9 g/dL (3.4-5.0); Alkaline Phosphatase 103 U/L (46-116); BUN 20 mg/dL (7-18); Bilirubin, Total 0.7 mg/dL (0.2-1.0); CREATININE 1.6 mg/dL (0.70-1.30); Calcium 9.6 mg/dL (8.5-10.1); Chloride 103 mmol/L (98-107); Estimated GFR 42.01 (mL/min/1.73m2); Glucose 96 mg/dL (74-106); Potassium 5.1 mmol/L (3.5-5.1); Sodium 138 mmol/L (136-145); Total Protein 7.8 g/dL (6.4-8.2)
[2021-08-01 18:13] LABS: PSA, Screening 1.4 ng/mL (0.0-6.5)
== END 2021-07-31 21:50 | disposition home or self-care (01) ==
LOC: NCHCN 21:49
PROVIDERS: PCP Family Medicine; Visit Provider Nurse Practitioner Family
DX: R10.32 Left lower quadrant pain (principal)
CPT/HCPCS: 80053; 84153; 85027

== ENCOUNTER 2021-08-01 15:13 | Outpatient (CLI) | payer MEDICARE, SELFPAY ==
--- NOTE | 2021-08-01 | DI.CT_ITS ---
Exam(s) CT ABDOMEN PELVIS W EXAM: CT ABDOMEN PELVIS W CLINICAL HISTORY: LLQ ABD PAIN TECHNIQUE: Imaging Protocol: Axial computed tomography images with coronal and sagittal reformatted images were created and reviewed CONTRAST MATERIAL: Intravenous: Omnipaque 350 Contrast volume:100 mL Oral: Yes COMPARISON: CT ABD PELVIS WITH CONTRAST from 02/12/2017 FINDINGS: ABDOMEN: Lung Bases: There is mild scarring or atelectasis in the lung bases. There is stable pulmonary nodul es in the right lung base. Cardiomegaly. Liver: Normal density. No measurable mass. Portal, Superior Mesenteric, and Splenic Veins: Unremarkable. Gallbladder and Biliary Tract: No radiodense calculus or dilation. Pancreas: Normal density, no abnormal calcifications or inflammatory process. Spleen: Normal. Adrenals: No masses seen. Kidneys: Normal size, contour and axis. There is a 3 mm stone at the left UVJ causing mild hydronephr osis. Stable right renal cyst. Abdominal Aorta: Abdominal portion non-dilated. Atherosclerosis. Bowel: No obstruction or bowel wall thickening. No evidence of appendicitis. Diverticulosis of the c olon but no evidence of acute diverticulitis. Peritoneal Cavity: No ascites, collection or mesenteric inflammatory response. No free air. Lymph Nodes: Within normal limits. Bones: Within normal limits for the patient's age. Ankylosis of the sacroiliac joints is noted there is 2-3 mm retrolisthesis of L2 on L3. Grade 1 anterolisthesis of L4 on L5 is noted. Soft Tissues: There is a small fat containing left inguinal hernia. PELVIS: Bladder: Symmetric distention, no gross wall thickening. Reproductive Organs: Unremarkable as visualized. Lymph Nodes: Within normal limits. Bones: Within normal limits for the patient's age. IMPRESSION: 3 mm left UVJ stone causing mild hydronephrosis. RADIATION DOSE DELIVERED: 764.97mGy.cm Total DLP DATA REPOSITORY: All CT scans at this facility are submitted to the National Radiology Data Registry (NRDR) Dose Index Registry (DIR) with the [employer] (ACR). RADIATION OPTIMIZATION: All CT scans at this facility use at least one of these dose optimization te chniques: automated exposure control; mA and/or kV adjustment per patient size (includes targeted exa ms where dose is matched to clinical indication); or iterative reconstruction.
[2021-08-01] MEDS: Omnipaque 350 MG/ML 100 ML BTL IV (15:34)
== END 2021-08-01 15:33 ==
PROVIDERS: PCP Family Medicine; Visit Provider Nurse Practitioner Family
DX: R10.32 Left lower quadrant pain (principal); N13.0 Hydronephrosis with ureteropelvic junction obstruction
CPT/HCPCS: 74177; J3490

== ENCOUNTER → 2021-08-02 08:25 | Outpatient (BNVA) | payer MEDICARE, SELFPAY | PROVIDERS: PCP Nurse Practitioner Family; Referring Provider Nurse Practitioner Family; Visit Provider Urology | DX: N20.1 Calculus of ureter (principal) | CPT/HCPCS: 99204; 99214 ==

== ENCOUNTER 2021-08-03 01:44 | Outpatient (CLI) | payer MEDICARE, SELFPAY ==
--- NOTE | 2021-08-03 12:56 | DI.US_ITS ---
APPROVED REPORT EXAM: Comprehensive 2D, Doppler, and color-flow Echocardiogram Patient Location: Out-Patient Supervisor Spinning: Stacey Perales RDCS (AE) Indications: Murmur Other Information Study Quality: Adequate Conclusion Normal left ventricular wall thickness and chamber size. Estimated ejection fraction is 60%. There are no segmental wall motion abnormalities Normal right ventricular size and systolic function The left atrium is normal in size. The right atrium is mildly dilated Trileaflet aortic valve without stenosis or regurgitation Normal mitral valve with mild regurgitation Normal tricuspid valve with moderate regurgitation. Estimated right ventricular systolic pressure is 33 mmHg Wall motion Left Ventricle The left ventricle is normal size. The left ventricular systolic function is normal. The left ventric ular ejection fraction is within the normal range. There is normal left ventricular wall thickness. T here is normal LV segmental wall motion. There is no ventricular septal defect visualized. LVEF is 60 %. Right Ventricle The right ventricle is normal size. The right ventricular systolic function is normal. The RVSP is 33 .2mmHg. Atria The left atrium size is normal. Right atrium is mildly dilated. The interatrial septum is intact with no evidence for an atrial septal defect. Aortic Valve The aortic valve is normal in structure. Aortic valve is trileaflet. There is no aortic valvular sten osis. No aortic regurgitation is present. Mitral Valve The mitral valve is normal in structure. No evidence of mitral valve stenosis. Mild mitral regurgitat ion. Tricuspid Valve The tricuspid valve is normal in structure. There is no tricuspid valve stenosis. Moderate tricuspid regurgitation. Pulmonic Valve The pulmonary valve is normal in structure. There is no pulmonic valvular stenosis. There is no pulmo rodolfo valvular regurgitation. Great Vessels The aortic root is normal in size. The ascending aorta is normal in size. Aortic arch is not well vis ualized. IVC is normal in size and collapses >50% with inspiration. Pericardium There is no pericardial effusion. 2D Dimensions IVSD d PLAX 0.92 cm M: 0.6-1.2 LV Vol A2C d MOD 91.2 mL LVPW d PLAX 0.91 cm M: 0.6 - 1.2 LV Vol A4C d MOD 96.0 mL LVID d PLAX 4.93 cm M: 4.2 - 5.8 LA vol/ BSA A2C s A-L 31.6 mL/m2 LVDs 3.15 cm M: 2.5 - 4.0 LA vol/ BSA A4C s A-L 22.1 mL/m2 Ao Root d 3.20 cm M: 3.1 - 3.7 LA Vol/ BSA Biplane s A-L 27.4 mL/m2 RA Area A4C 14.93 cm2 LA Area A4C s MOD 16.70 cm2 RA Vol/ BSA A4C s A-L 19.1 mL/m2 LA Area A2C s MOD 19.27 cm2 Ao Asc Diam d 3.38 cm M: 2.6 - 3.4 LV EF A4C MOD 60.3 % LV EF Teichholz 65.2 % LV EF A2C MOD 58.5 % LVEF (Sanchez's) 60.27 % M: 52 - 72 LV EF Biplane MOD 60.3 % LV Volume 72.61 mL M: 62 - 150 SV 57.32 mL LV Volume Index 38.41 mL/m2 M: 34 - 74 SV Index 30.20 mL/m2 LV Vol Biplane MOD 95.1 mL FS 35.80 % M-Mode TAPSE 3.26 cm (M/F) >1.7 LV Diastology MV E' medial 0.119 (>0.07 m/s) E/A Ratio 0.6 LV E/e MED 4.40 (<14) MV E Vmax 0.52 (0.4-1.3 m/s) MV E' lateral 0.095 (>0.1 m/s) MV A Vmax 0.85 (0.4-1.3 m/s) LV E/e LAT 5.50 (<14) MV E/A Ratio 0.59 MV E/E' medial 4.40 MV E/E' lateral 5.54 Aortic Valve LVOT Area 3.42 cm2 AoV Area Vmax 2.64 cm2 LVOT Vmax 1.11 m/s AoV Area/ BSA (Vmax) 1.39 cm2/m2 LVOT Mean Jose. 0.88 m/s CHARLINE Mean Jose. 2.97 cm2 LVOT Peak Grad 4.9 mmHg CHARLINE Mean Jose. Index 1.56 cm2/m2 LVOT Mean Grad 3.2 mmHg LVOT VTI 0.200 m LVOT Diam s 2.05 cm AoV Vmax 1.43 m/s Velocity Ratio 0.77 AoV Mean Jose. 1.01 m/s AoV Peak Grad 8.2 mmHg LVOT SV 68.35 mL AoV Mean Grad 4.5 mmHg AoV VTI 0.224 m AoV Area VTI 3.05 cm2 AoV Area/ BSA (VTI) 1.61 cm/m2 Mitral Valve MV DT 414 (160-240 msec) MV PHT 120 msec MV Area PHT 1.83 cm2 MV VTI 0.196 m MV Area VTI 3.49 (4.0-6.0 cm2) Pulmonary Valve PV Vmax 1.21 (0.5-1.5 m/s) RVOT Peak Gr. 1.76 mmHg PV Peak Grad 5.9 mmHg RVOT Mean Gr. 1.00 mmHg PV Mean Grad 2.9 mmHg RVOT VTI 0.141 m PV VTI 0.217 m RVOT Vmax 0.66 m/s Tricuspid Valve TR Peak Grad 30.2 mmHg TR Vmax 2.75 m/s RA Pressure 3.00 mmHg RVSP (TR) 33.2 mmHg
== END 2021-08-03 02:04 ==
PROVIDERS: PCP Nurse Practitioner Family; Visit Provider Nurse Practitioner Family
DX: R01.1 Cardiac murmur, unspecified (principal); I08.1 Rheumatic disorders of both mitral and tricuspid valves
CPT/HCPCS: 93306

== ENCOUNTER 2021-08-08 16:42 | Outpatient (REF) | payer MEDICARE, SELFPAY ==
[2021-08-10 11:00] LABS: Source: Passed Stone
== END 2021-08-08 16:43 | disposition home or self-care (01) ==
LOC: LBN 16:42
PROVIDERS: PCP Nurse Practitioner Family; Visit Provider Urology
DX: N20.0 Calculus of kidney (principal)
CPT/HCPCS: 82365

== ENCOUNTER → 2022-01-07 14:01 | Outpatient (BNVA) | payer MEDICARE, SELFPAY | PROVIDERS: PCP Family Medicine; Referring Provider Nurse Practitioner Family; Visit Provider Student in an Organized Health Care Education/Training Program | DX: M65.322 Trigger finger, left index finger (principal); M65.332 Trigger finger, left middle finger | CPT/HCPCS: 99212 ==

== ENCOUNTER 2022-01-15 15:16 | Outpatient (REF) | payer MEDICARE, SELFPAY ==
[2022-01-15 15:51] LABS: TSH (W/Ref FT4) 3.74 uIU/mL (0.36-3.74)
== END 2022-01-15 15:17 | disposition home or self-care (01) ==
LOC: NCHCN 15:16
PROVIDERS: PCP Family Medicine; Visit Provider Family Medicine
DX: E03.9 Hypothyroidism, unspecified (principal)
CPT/HCPCS: 84443

== ENCOUNTER 2022-01-23 06:05 | Day surgery (SDC) | payer MEDICARE, SELFPAY ==
[2022-01-23 06:40] VITALS: BP 125/71; PULSE 54; RESP 15; TEMP 36.4; O2SAT 97
--- NOTE | 2022-01-23 07:14 | W.PM.DSUDISC ---
Discharge Plan Disposition Patient Disposition: HOME Condition: Good Discharge Details Reason For Visit: Left index and middle finger trigger fingers Attending Provider: Heraclio Valera Primary Care Provider: Roxane Marti Home Meds and New Rx's Prescriptions: Continued omega-3 fatty acids [Fish Oil Concentrate] 1,000 mg capsule 1,000 mg PO DAILY thyroid (pork) [[place] Thyroid] 30 mg tablet 30 mg PO DAILY lidocaine 4 % cream 1 applic topical QID PRN [id number] C-Mn [Glucosamine-Chondroitin Complx] 500-400 mg capsule 1 cap PO DAILY ICaps AREDS 14,320-226-200 zwne-mu-zguc capsule 1 cap PO BID calcium carb and citrate-vitD3 1 EACH tablet extended release 1 ea PO BID acetaminophen [Acetaminophen Extra Strength] 500 mg Tablet 500 mg PO Q6H PRN Discharge Instructions Stand Alone Forms: Moraima Amor Finger Release Activity:: Elevate Remove Dressings/Wound Care:: 72 hours Shower/Bathe:: 72 hours Diet:: As Tolerated Discharge Orders Discharge Orders: Discharge Order (Routine); Ordered 01/23/22 Ordered By: Camryn Sousa
[2022-01-23] MEDS: Sodium Bicarbonate 50 MEQ/50 ML VIAL (07:31)
[2022-01-23] MEDS: Lidocaine 1% Multi-Dose W/EPI 1/100,000 50 ML VIAL (07:31)
[2022-01-23 07:46] VITALS: BP 143/70; PULSE 55; RESP 15; TEMP 36.3; O2SAT 97
--- NOTE | 2022-01-23 14:00 | W.PM.OP ---
Date of service: 01/23/22 Time of Service: 07:45 Operative Note Operative Note DATE OF PROCEDURE: 01/23/22 PRE-OP DIAGNOSIS: Left Index and Middle Finger Trigger Fingers POST-OP DIAGNOSIS: same PROCEDURE: Trigger Finger Release - Left Index and Middle Fingers SURGEON: Heraclio Valera Refer to Anesthesia Record ESTIMATED BLOOD LOSS: 5 PATHOLOGY: none sent TOURNIQUET TIME: 0 COMPLICATIONS: None Patient was transported to: same day Patient's condition: stable Indications: I have seen John Paul in clinic for symptoms of a trigger finger. The catching, clicking, locking, and pain limited function. The diagnosis of trigger finger was evident. The symptoms had not responded to conservative measures. I discussed trigger finger release with the patient. I reviewed the risks of the procedure to include, but not limited to, bleeding, infection, pain, stiffness, incomplete release, damage to nerves or vessels, continued catching, recurrence. Despite these risks, the patient elected to proceed. Findings: There was a tightened A1 nivia which was released. The flexor tendons were inspected and the patient was able to move the fingers without any catching, clicking, or locking. Procedure Description: John Paul was greeted in the preoperative holding area where the correct side was identified and marked. The consent was reviewed with the patient and signed. All questions were answered. He was taken back to the operating room. The patient was placed into the supine position on the operating room table with the left arm on an arm board. All bony prominences were well padded. No prophylactic antibiotics were administered since this was a clean, elective hand surgical case. The left arm was then prepped with Chloraprep and draped in a standard fashion with stockinette and extremity drape. A timeout to confirm correct identity, side and site, procedure, allergies, anesthesia, and medical concerns was performed. The surgical site was marked as a longitudinal incision directly over the A1 nivia of the involved digits - index and middle. This was confirmed with palpation during finger flexion. This area, overlying the metacarpal head, was then anesthetized with 1% Lidocaine of both fingers. The patient tolerated this well and once the anesthetic had setup, the procedure began. Starting with the index finger, a longitudinal incision was made through skin only, approximately 1cm. The deep tissues were dissected bluntly. Once the A1 nivia and flexor tendons were identified the soft tissue including neurovascular structures were retracted medially and laterally. There were no crossing structures over the A1 nivia. The proximal edge of the nivia was identified and the nivia was incised with tenotomy scissors. There was a release of the tendons once this was fully released. The tendons were then removed from the wound and inspected. Excess synovium was resected. The tendons were then returned and the patient was asked to move the finger into deep flexion and back to extension. There was no recreation of the pre-operative symptoms. The hand was then once more inspected for any A0 nivia or area of possible constriction. The wound was then irrigated and the skin was closed with a 4-0 Nylon. Attention was then turned to the middle finger. A longitudinal incision was made through skin only, approximately 1cm. The deep tissues were dissected bluntly. Once the A1 nivia and flexor tendons were identified the soft tissue including neurovascular structures were retracted medially and laterally. There were no crossing structures over the A1 nivia. The proximal edge of the nivia was identified and the nivia was incised with tenotomy scissors. There was a release of the tendons once this was fully released. There was thickened synovium about the tendons. The tendons were then removed from the wound and inspected. Excess synovium was resected. The tendons were then returned and the patient was asked to move the finger into deep flexion and back to extension. There was no recreation of the pre-operative symptoms. The hand was then once more inspected for any A0 nivia or area of possible constriction. The wound was then irrigated and the skin was closed with a 4-0 Nylon. These were then dressed with gauze and a Conform dressing. The patient tolerated the procedure well and was returned to the Same Day Surgery area in a stable condition suffering no known complication.
== END 2022-01-23 08:15 | disposition home or self-care (01) ==
PROVIDERS: PCP Family Medicine; Visit Provider Student in an Organized Health Care Education/Training Program
PROC: (CPT 26055; principal; 2022-01-23 07:30)
DX: M65.322 Trigger finger, left index finger (principal); M65.332 Trigger finger, left middle finger
CPT/HCPCS: 26055 ×2

== ENCOUNTER → 2022-02-01 09:20 | Outpatient (BNVA) | payer MEDICARE, SELFPAY | PROVIDERS: PCP Family Medicine; Referring Provider Family Medicine; Visit Provider Physician Assistant | DX: Z47.89 Encounter for other orthopedic aftercare (principal); M65.322 Trigger finger, left index finger; M65.332 Trigger finger, left middle finger ==

== ENCOUNTER 2022-02-11 09:17 | Outpatient (REF) | payer MEDICARE, SELFPAY ==
[2022-02-11 15:15] LABS: Vitamin D 25 Total 37.1 ng/mL (30-100)
[2022-02-11 21:56] LABS: ALT 19 U/L (16-63); AST 10 U/L (15-37); Albumin 4.1 g/dL (3.4-5.0); Alkaline Phosphatase 93 U/L (46-116); Anion Gap 9.6 mmol/L (3-11); BUN 18 mg/dL (7-18); Bilirubin, Total 0.9 mg/dL (0.2-1.0); CO2 27.4 mmol/L (21.0-32.0); CREATININE 1.1 mg/dL (0.70-1.30); Calculated LDL 109 mg/dL (<100); Chloride 106 mmol/L (98-107); Cholesterol 186 mg/dL (<200); Glucose 100 mg/dL (74-106); HDL Cholesterol 61 mg/dL (40-60); Potassium 4.8 mmol/L (3.5-5.1); Sodium 143 mmol/L (136-145); Total Protein 7.5 g/dL (6.4-8.2); Triglyceride 82 mg/dL (<150)
[2022-02-11 22:23] LABS: FREE T4 0.82 ng/dL (0.76-1.46)
[2022-02-11 22:34] LABS: T3,Free 4.9 pg/mL (2.8-5.3)
== END 2022-02-11 09:18 | disposition home or self-care (01) ==
LOC: NCHCN 09:17
PROVIDERS: PCP Family Medicine; Visit Provider Family Medicine
DX: E03.9 Hypothyroidism, unspecified (principal); R53.83 Other fatigue
CPT/HCPCS: 80053; 80061; 82306; 84439; 84481

== ENCOUNTER 2022-04-14 17:59 | Emergency (ER) | payer MEDICARE, SELFPAY ==
--- NOTE | 2022-04-14 18:00 | DI.RAD_ITS ---
Exam(s) XR PORTABLE CHEST AP EXAM: XR PORTABLE CHEST AP CLINICAL HISTORY: cough/fever/covid +. TECHNIQUE: 2D digital imaging was performed. COMPARISON: CR ABD FLAT UPRIGHT PA CHEST from 03/18/2010 CR RIGHT SHOULDER COMPLETE from 01/24/2016 FINDINGS: Single AP portable view. Heart size is upper normal. The mediastinum is not widened. There is platelike atelectasis in the right lung base. Left lung is clear. No pleural effusions. N o pulmonary edema. IMPRESSION: Platelike atelectasis or scarring in the right lung base. DATA REPOSITORY: RADIATION DOSE DELIVERED: All CT scans at this facility use at least one of these dose optimization techniques: automated exposure control; mA and/or kV adjustment per patient size (includes targeted e xams where dose is matched to clinical indication); or iterative reconstruction.
[2022-04-14 18:04] VITALS: BP 149/82; PULSE 90; RESP 18; TEMP 38.5; O2SAT 95
--- NOTE | 2022-04-14 18:14 | ED.GENADUL_ITS ---
Discharge Plan Disposition Patient Disposition: HOME Condition: Stable Discharge Details Clinical Impression: COVID-19 Primary Care Provider: Roxane Marti ED Provider: John Lane Home Meds and New Rx's Prescriptions: Continued omega-3 fatty acids [Fish Oil Concentrate] 1,000 mg capsule 1,000 mg PO DAILY thyroid (pork) [[place] Thyroid] 30 mg tablet 30 mg PO DAILY ICaps AREDS 14,320-226-200 sghb-sv-dbde capsule 1 cap PO BID calcium carb and citrate-vitD3 1 EACH tablet extended release 1 ea PO BID acetaminophen [Acetaminophen Extra Strength] 500 mg Tablet 500 mg PO Q6H PRN Discharge Instructions Instructions: COVID-19 (Coronavirus Disease 2019) (ED) Additional Instructions: Paxlovid as directed. Oxvc-xqd-tekradd medications as directed for symptomatic control. Plenty of fluids to avoid dehydration. Rest. Please watch for new or worsening symptoms and return to the ER for any concerns. Lastly please contact your primary care provider tomorrow to discuss your ER visit and need for ou tpatient reevaluation likely by telemedicine Medical Decision Making This is a 81-year-old gentleman, past medical history that includes thyroid di sease, fully vaccinated against COVID, presenting with 2-day history of URI-like symptoms and testing positive for COVID today. Clinically he appears well, nontoxic, speaking in full sentences, pulse in the 90s, O2 sat 95% on room air. He does have a temperature of 38.5. Plan is to obtain IV access, give IV fluid, p.o. Tylenol, obtain routine screening laboratory values, a chest x-ray, and confirm the COVID diagnosis Laboratory values do not reveal any evidence of leukocytosis, anemia, thrombocytopenia. Electrolytes unremarkable. Renal function normal. Normal LFTs. Chest x-ray clear COVID-positive Discussed findings with patient and family, discussed treatment with Paxlovid as I do not see any indication that patient will require admission. Risks and benefits discussed, they would like to move forward with treatment Case discussed with our telemetry pharmacy team who reviewed the case with me. She believes that a full dose regimen of Paxlovid is appropriate and no changes to his current medications need to be made. First dose given now Fever resolved with p.o. Tylenol and IV fluids. Patient subjectively feels slight improvement. Remains hemodynamically stable. Standard discharge and return precautions were provided. Patient understands, is agreeable to this plan, and has no additional questions or concerns upon discharge. This documentation was generated using [employer] system, please disregard any oddities of phrase or misspellings. Medical Records Medical records reviewed: Yes I reviewed the patient's medical records. Imaging Data Radiologic Study: Attestation: I personally reviewed and interpreted this imaging study as follows: Imaging: X-Ray Radiologist's impression: PROCEDURE INFORMATION: Exam: XR Chest Exam date and time: 04/14/2022 6:18 PM Age: 81 years old Clinical indication: Cough and fever; Patient HX: Cough, fever, covid + TECHNIQUE: Imaging protocol: Radiologic exam of the chest. Views: 1 view. Other contrast: Oral; COMPARISON: CT ABDOMEN PELVIS W 08/01/2021 3:26 PM FINDINGS: Limitations: Patient positioning is lordotic. Lungs: No pulmonary consolidation is seen. Pleural spaces: No pleural effusion or pneumothorax is demonstrated. Heart/Mediastinum: Heart size is normal. Bones/joints: The visualized bony structures appear grossly intact, as seen. IMPRESSION: No active disease is seen in the chest Lab Data Lab results reviewed: Yes I reviewed the patient's lab results. Labs: Laboratory Tests Range/Units 04/14/22 04/14/22 04/14/22 18:45 18:55 18:55 WBC (4.4-10.8) 10^3/uL 8.42 RBC (4.36-5.78) 10^6/uL 4.23 L Hgb (13.5-17.5) g/dL 13.6 Hct (40.0-50.0) % 40.7 MCV (80-95) fL 96 H MCH (27.0-33.0) pg 32.2 MCHC (32.0-36.0) % 33.4 RDW (11.8-14.1) % 12.9 Plt Count (130-400) 10^3/uL 162 MPV (8.0-11.0) fL 9.8 Immature Gran % 0.4 Neutrophils % 61.4 Lymphocytes % 21.3 Monocytes % 16.5 Eosinophils % 0.0 Basophils % 0.4 Nucleated RBC % (0.0-0.3) % 0.0 Absolute Neutrophils (1.2-6.7) 10^3/uL 5.18 Absolute Lymphocytes (1.2-3.4) 10^3/uL 1.79 Absolute Monocytes (0.1-0.8) 10^3/uL 1.39 H Absolute Eosinophils (0.0-0.7) 10^3/uL 0.00 Absolute Basophils (0.0-0.2) 10^3/uL 0.03 Sodium (136-145) mmol/L 138 Potassium (3.5-5.1) mmol/L 4.2 Chloride (98-107) mmol/L 103 Carbon Dioxide (21.0-32.0) mmol/L 28.7 Anion Gap (3-11) mmol/L 6.3 BUN (7-18) mg/dL 13 Creatinine (0.70-1.30) mg/dL 1.1 Estimated GFR/1.73 m2 (mL/min/1.73m2) >= 60.00 Glucose (74-106) mg/dL 120 H Calcium (8.5-10.1) mg/dL 8.6 Total Bilirubin (0.2-1.0) mg/dL 0.7 AST (15-37) U/L 18 ALT (16-63) U/L 17 Alkaline Phosphatase (46-116) U/L 73 Total Protein (6.4-8.2) g/dL 7.7 Albumin (3.4-5.0) g/dL 3.6 COVID-19 Source Nasal/Nares SARS-CoV-2 (PCR) (Negative) POSITIVE A* HPI General Mode of arrival: ambulatory . Date/Time Provider Initiated Documentation: 04/14/22 18:06 . Limitations to Documentation: no limitations . Information obtained by: patient and family . HPI Narrative: 81-year-old gentleman presents with URI-like symptoms that began 2 days ago, subjective fever, dry cough, body aches, sore throat, subsequently testing positive for COVID earlier today at home. He took a single dose of Tylenol this morning. He denies nausea now but reports 2 episodes of vomiting earlier today. Denies visual changes, neck pain, chest pain, shortness of breath, productive cough, abdominal pain, dysuria, diarrhea, skin rash, numbness, tingling, weakness, pain or swelling in his legs. Patient states that he is fully vaccinated against COVID Related Data Home Medications Medication Instructions Recorded Confirmed calcium carb,cit ER 600 mg-vit D3 1 ea PO BID 01/24/16 04/14/22 12.5 mcg (500 unit) tablet,ext.rel vitamins A,C,K-oybl-nscwjw 14,320 1 cap PO BID 05/23/20 04/14/22 unit-226 mg-200 unit capsule (ICaps AREDS) omega-3 fatty acids 1,000 mg 1,000 mg PO DAILY 08/02/21 04/14/22 capsule (Fish Oil Concentrate) thyroid (pork) 30 mg tablet 30 mg PO DAILY 08/02/21 04/14/22 ([place] Thyroid) acetaminophen 500 mg tablet 500 mg PO Q6H PRN 01/23/22 04/14/22 (Acetaminophen Extra Strength) Allergies Allergy/AdvReac Type Severity Reaction Status Date / Time codeine Allergy Intermediate Skin Rash Verified 04/14/22 18:06 doxycycline Allergy made hands Verified 04/14/22 18:06 feel like they were burning up General Stated Complaint: RespSymp NICK: 4 Review of Systems Constitutional Constitutional: Reports fever(s), Reports headache(s) and Denies weakness Eyes Eyes: Denies change in vision ENT Ears, Nose, Mouth, and Throat: Reports headache(s), Denies neck pain and Reports sore throat Cardiovascular Cardiovascular: Denies chest pain and Denies dyspnea Respiratory Respiratory: Reports cough and Denies dyspnea Gastrointestinal Gastrointestinal: Denies abdominal pain, Denies nausea and Reports vomiting Genitourinary Genitourinary: Denies dysuria Musculoskeletal Musculoskeletal: Reports myalgias and Denies neck pain Integumentary/Breasts Skin/Breast: Denies rash Neurologic Neurologic: Reports headache(s) and Denies weakness PFSH All Active Problems COVID-19 (Acute) Left lumbar radiculitis (Chronic) Tinea corporis (Acute) Bilateral hearing loss (Acute) Carpal tunnel syndrome (Acute) OA (osteoarthritis) of finger (Acute) Right trigger finger (Acute) Hypothyroid (Chronic) Paresthesia (Acute) Chronic neck pain (Acute) Blind left eye (Acute) Lung nodule (Acute) Positive PALAK (antinuclear antibody) (Acute) Polyarthralgia (Acute) Incisional hernia (Acute) Cubital tunnel syndrome on left (Acute) s/p ulnar nerve decompression and anterior transposition DOS:07/12/2020 Cubital tunnel syndrome on right (Acute) Right carpal tunnel syndrome (Acute) Left carpal tunnel syndrome (Acute) s/p left ECTR DOS:07/12/2020 Trigger finger, left ring finger (Acute) s/p release DOS:07/12/2020 Spasm of back muscles (Acute) Medical History Appendiceal carcinoid tumor Blindness, left eye, 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 states his r eye he had a leaky vessel, I had to have shots in my eye, and I've been seeing a Retina Specialist in [place] Carotid artery stenosis Pt states, No I've never had any problems, there never have been Chronic headaches Cognitive impairment possible early alzheimers Diverticulosis (04/24/16) Heart burn Hemorrhoids Hernia, incisional, with obstruction (06/26/15) Hydronephrosis Hypercholesterolemia Mild cognitive impairment (04/17/16) Nephrolithiasis Osteopenia Plantar fasciitis Polyp of colon (07/31/07) 1 hyperplastic polyp Raynauds disease Sexual dysfunction Shoulder pain cuff tendonosis w/ impingement syndrome-left shoulder Trigger finger of right thumb (04/19/15) Varicosities of leg Vitamin D deficiency Surgical History Appendectomy (03/01/09) Colonoscopy - IV Sedation (04/23/16) Hemicolectomy (~04/2009) RIGHT History of arthroscopy of left knee History of arthroscopy of right knee History of incisional hernia repair (~06/14/20) Hx of cataract surgery Repair of inguinal hernia RIGHT Trigger Finger release Trigger finger, left index finger S/P Release: 01/23/2022 Trigger finger, left middle finger S/P Release: 01/23/2022 Trigger finger, right index finger S/P release 04/20/2019 Vasectomy Family History Mother Ruptured appendix Father Asthma Sister Essential hypertension Hyperlipidemia Brother Hyperlipidemia Grandfather No problems noted. Grandfather No problems noted. Grandmother Essential hypertension Grandmother Diabetes Social History Smoking/Tobacco Use Status: Never Smoking risk assessment performed?: Yes Alcohol Intake: current Alcohol Intake frequency: a few times a week Alcohol type: beer and hard liquor Drug use: Never Substance use type: does not use Do you feel safe at home: Yes Do you feel safe in your relationship?: Yes Exam Const General: cooperative, healthy appearing, comfortable and no acute distress Orientation: alert and awake [facility] Head: normal to inspection, normocephalic and atraumatic Mouth: moist mucous membranes Throat: posterior oropharynx normal Eyes Conjunctivae: conjunctivae normal Neck Neck: normal visual inspection, full ROM, no meningeal signs, trachea midline and supple Resp Effort & Inspection: normal respiratory effort and able to speak in complete sentences Auscultation: clear to auscultation bilaterally Cardio Rate: regular rate Rhythm: regular rhythm GI Palpation: soft, not firm, no guarding, no pulsatile masses and nontender Back/Spine/Pelvis Back: No back tenderness Skin General skin exam: no rashes or lesions noted Neuro General: patient alert, patient awake, moves all extremities and no focal motor deficits Cognition: normal cognition Speech: speech normal Gait: normal gait Sensory Exam: no sensory deficits noted Extrem General: normal to inspection, full ROM, capillary refill normal, no pedal edema and no calf tenderness Psych Appearance: grossly normal Mental Status: mental status grossly normal Course Vital Signs Vital signs: Vital Signs Temperature 38.5 C H 04/14/22 18:04 Pulse 90 04/14/22 18:04 Respiratory Rate 18 04/14/22 18:04 Blood Pressure 149/82 H 04/14/22 18:04 Pulse Oximetry 95 04/14/22 18:04 Temperature 38.5 C H 04/14/22 18:04 Temperature Source Tympanic 04/14/22 18:04 Pulse 90 04/14/22 18:04 Respiratory Rate 18 04/14/22 18:04 Blood Pressure 149/82 H 04/14/22 18:04 Blood Pressure Position Sitting 04/14/22 18:04 Pulse Oximetry 95 04/14/22 18:04 Oxygen Delivery Method Room Air 04/14/22 18:04 Oxygen Flow Rate 0 04/14/22 18:04 Pain Level 10 04/14/22 18:04
[2022-04-14 18:51] LABS: Source Nasal/Nares
--- NOTE | 2022-04-14 18:52 | DI.VRAD_ITS ---
PROCEDURE INFORMATION: Exam: XR Chest Exam date and time: 04/14/2022 6:18 PM Age: 81 years old Clinical indication: Cough and fever; Patient HX: Cough, fever, covid + TECHNIQUE: Imaging protocol: Radiologic exam of the chest. Views: 1 view. Other contrast: Oral; COMPARISON: CT ABDOMEN PELVIS W 08/01/2021 3:26 PM FINDINGS: Limitations: Patient positioning is lordotic. Lungs: No pulmonary consolidation is seen. Pleural spaces: No pleural effusion or pneumothorax is demonstrated. Heart/Mediastinum: Heart size is normal. Bones/joints: The visualized bony structures appear grossly intact, as seen. IMPRESSION: No active disease is seen in the chest. Dictated and Authenticated by: Nilesh Thomson MD. Ordering:HILARIA Lopez MD
[2022-04-14] MEDS: Normal Saline 250 ML 500 ML IV (18:55)
[2022-04-14] MEDS: Acetaminophen 325 MG TAB 650 MG PO (18:57)
[2022-04-14 19:01] LABS: Abs Immature Grans 0.03 10^3/uL (0.0-0.06); Absolute Basophil Count 0.03 10^3/uL (0.0-0.2); Absolute Lymphocyte Count 1.79 10^3/uL (1.2-3.4); Absolute Monocyte Count 1.39 10^3/uL (0.1-0.8); Absolute Neutrophil Count 5.18 10^3/uL (1.2-6.7); Basophils % 0.4; HCT 40.7 % (40.0-50.0); HGB 13.6 g/dL (13.5-17.5); Immature Grans % 0.4; Lymphocytes % 21.3; MCH 32.2 pg (27.0-33.0); MCHC 33.4 % (32.0-36.0); MCV 96 fL (80-95); MPV 9.8 fL (8.0-11.0); Monocytes % 16.5; Neutrophils % 61.4; Platelet Count 162 10^3/uL (130-400); RBC 4.23 10^6/uL (4.36-5.78); RDW 12.9 % (11.8-14.1); RDW-SD 46.1 fL; WBC 8.42 10^3/uL (4.4-10.8)
[2022-04-14 19:15] LABS: ALT 17 U/L (16-63); AST 18 U/L (15-37); Albumin 3.6 g/dL (3.4-5.0); Alkaline Phosphatase 73 U/L (46-116); Anion Gap 6.3 mmol/L (3-11); BUN 13 mg/dL (7-18); Bilirubin, Total 0.7 mg/dL (0.2-1.0); CO2 28.7 mmol/L (21.0-32.0); CREATININE 1.1 mg/dL (0.70-1.30); Calcium 8.6 mg/dL (8.5-10.1); Chloride 103 mmol/L (98-107); Glucose 120 mg/dL (74-106); Potassium 4.2 mmol/L (3.5-5.1); Sodium 138 mmol/L (136-145); Total Protein 7.7 g/dL (6.4-8.2)
[2022-04-14 19:23] LABS: COVID-19 PCR POSITIVE (Negative)
[2022-04-14 20:48] VITALS: BP 117/77; PULSE 72; TEMP 37.3; O2SAT 96
[2022-04-14 21:05] VITALS: BP 117/77; PULSE 72; RESP 18; TEMP 37.3; O2SAT 96
== END 2022-04-14 20:58 | disposition home or self-care (01) ==
PROVIDERS: Emergency Provider Physician Assistant; PCP Family Medicine
DX: U07.1 COVID-19 (principal); R50.9 Fever, unspecified
CPT/HCPCS: 36415; 80053; 87635; 99283; 99284; 71045; 85025

== ENCOUNTER 2022-07-04 19:11 | Emergency (ER) | payer MEDICARE, SELFPAY ==
[2022-07-04 19:44] VITALS: BP 136/88; PULSE 77; RESP 16; TEMP 36.8
--- NOTE | 2022-07-04 20:30 | DI.RAD_ITS ---
Exam(s) XR FINGER LT INDEX EXAM: XR FINGER LT INDEX CLINICAL HISTORY: Injury, Laceration, R/O Foreign body, fracture. TECHNIQUE: 2D digital imaging was performed. COMPARISON: CR LEFT THUMB from 10/24/2009 FINDINGS: 3 views Soft tissue laceration on the medial base of the 2nd-index finger. No radiopaque foreign body. No f racture. No osseous lesions nor erosions. Some degenerative narrowing of the metacarpophalangeal joint of the index finger is noted. IMPRESSION: Laceration but no significant acute osseous findings. DATA REPOSITORY: RADIATION DOSE DELIVERED:
--- NOTE | 2022-07-04 21:09 | W.ED.GENAD ---
Discharge Plan Disposition Patient Disposition: HOME Condition: Stable Discharge Details Clinical Impression: Laceration of left index finger Primary Care Provider: Roxane Marti ED Provider: Rubi Baker Home Meds and New Rx's Prescriptions: Continued omega-3 fatty acids [Fish Oil Concentrate] 1,000 mg capsule 1,000 mg PO DAILY thyroid (pork) [[place] Thyroid] 30 mg tablet 30 mg PO DAILY ICaps AREDS 14,320-226-200 uqal-wg-dktu capsule 1 cap PO BID calcium carb and citrate-vitD3 1 EACH tablet extended release 1 ea PO BID acetaminophen [Acetaminophen Extra Strength] 500 mg Tablet 500 mg PO Q6H PRN Discharge Instructions Instructions: Acute Wounds (ED) Additional Instructions: Keep dressing in place x 2 days. Then after taking off the outer dressing layers, you may gently soak the dressing off in water. Keep clean and dry. Please take Tylenol or Ibuprofen with food every 4-6 hours as needed for pain and swelling. Please return to be seen sooner for any signs of infection including red streaks, drainage, redness or increased pain. Referrals: Roxane Marti [Primary Care Provider] - 3 days Medical Decision Making 81-year-old male presents to the ER with chief complaint of left index finger laceration which occurred approximately 5:30 PM this evening while using a crossbow. He does have full range of motion to his finger. He reports he is tetanus is up-to-date. He does have an avulsion noted over his middle phalanx with a slow venous ooze noted. There is a nonsuturable laceration. Surgicel dressing, nonadherent dressing and tube gauze applied to finger. Bleeding is controlled at this time. Discussed home care strict return instructions with patient who verbalized understanding. I did instruct him not to take the dressing off for the next 48 hours. And when taking the dressing off to run it under water to avoid clot dislodged. No bleeding upon patient discharge from the department noted. This text was generated using [employer] system, please disregard any oddities of phrase or misspellings. Imaging Data Radiologic Study: Imaging: X-Ray Radiologist's impression: COMPARISON: No relevant prior studies available. FINDINGS: Bones/joints: No acute fracture or dislocation. Degenerative changes at the 1st carpal metacarpal joint Soft tissues: Diffuse swelling of the 2nd finger and laceration. No radiopaque foreign body IMPRESSION: No acute fracture Left 2nd finger swelling/laceration. No radiopaque foreign body HPI General Mode of arrival: ambulatory. Date/Time Provider Initiated Documentation: 07/04/22 19:53. Limitations to Documentation: no limitations. Information obtained by: patient, RN notes reviewed and old records reviewed. HPI Narrative: 81-year-old male presents to the ER with chief complaint of left index finger laceration which occurred approximately 5:30 PM this evening while using a crossbow. He does have full range of motion to his finger. He reports he is tetanus is up-to-date. He does have an avulsion noted over his middle phalanx with a slow venous ooze noted. There is a nonsuturable laceration. Related Data Home Medications Medication Instructions Recorded Confirmed calcium carb,cit ER 600 mg-vit D3 1 ea PO BID 01/24/16 07/04/22 12.5 mcg (500 unit) tablet,ext.rel vitamins A,C,M-lrni-stnkbk 14,320 1 cap PO BID 05/23/20 07/04/22 unit-226 mg-200 unit capsule (ICaps AREDS) omega-3 fatty acids 1,000 mg 1,000 mg PO DAILY 08/02/21 07/04/22 capsule (Fish Oil Concentrate) thyroid (pork) 30 mg tablet 30 mg PO DAILY 08/02/21 07/04/22 ([place] Thyroid) acetaminophen 500 mg tablet 500 mg PO Q6H PRN 01/23/22 07/04/22 (Acetaminophen Extra Strength) Allergies Allergy/AdvReac Type Severity Reaction Status Date / Time codeine Allergy Intermediate Skin Rash Verified 07/04/22 19:53 doxycycline Allergy made hands Verified 07/04/22 19:53 feel like they were burning up General Stated Complaint: Laceration NICK: 4 PFSH All Active Problems (Updated 07/04/22 @ 21:46 by Rubi Baker NP) COVID-19 (Acute) Laceration of left index finger (Acute) Left lumbar radiculitis (Chronic) Tinea corporis (Acute) Bilateral hearing loss (Acute) Carpal tunnel syndrome (Acute) OA (osteoarthritis) of finger (Acute) Right trigger finger (Acute) Hypothyroid (Chronic) Paresthesia (Acute) Chronic neck pain (Acute) Blind left eye (Acute) Lung nodule (Acute) Positive PALAK (antinuclear antibody) (Acute) Polyarthralgia (Acute) Incisional hernia (Acute) Cubital tunnel syndrome on left (Acute) s/p ulnar nerve decompression and anterior transposition DOS:07/12/2020 Cubital tunnel syndrome on right (Acute) Right carpal tunnel syndrome (Acute) Left carpal tunnel syndrome (Acute) s/p left ECTR DOS:07/12/2020 Trigger finger, left ring finger (Acute) s/p release DOS:07/12/2020 Spasm of back muscles (Acute) Medical History Appendiceal carcinoid tumor Blindness, left eye, 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 states his r eye he had a leaky vessel, I had to have shots in my eye, and I've been seeing a Retina Specialist in [place] Carotid artery stenosis Pt states, No I've never had any problems, there never have been Chronic headaches Cognitive impairment possible early alzheimers Diverticulosis (04/24/16) Heart burn Hemorrhoids Hernia, incisional, with obstruction (06/26/15) Hydronephrosis Hypercholesterolemia Mild cognitive impairment (04/17/16) Nephrolithiasis Osteopenia Plantar fasciitis Polyp of colon (07/31/07) 1 hyperplastic polyp Raynauds disease Sexual dysfunction Shoulder pain cuff tendonosis w/ impingement syndrome-left shoulder Trigger finger of right thumb (04/19/15) Varicosities of leg Vitamin D deficiency Surgical History Appendectomy (03/01/09) Colonoscopy - IV Sedation (04/23/16) Hemicolectomy (~04/2009) RIGHT History of arthroscopy of left knee History of arthroscopy of right knee History of incisional hernia repair (~06/14/20) Hx of cataract surgery Repair of inguinal hernia RIGHT Trigger Finger release Trigger finger, left index finger S/P Release: 01/23/2022 Trigger finger, left middle finger S/P Release: 01/23/2022 Trigger finger, right index finger S/P release 04/20/2019 Vasectomy Family History Mother Ruptured appendix Father Asthma Sister Essential hypertension Hyperlipidemia Brother Hyperlipidemia Grandfather No problems noted. Grandfather No problems noted. Grandmother Essential hypertension Grandmother Diabetes Social History Smoking/Tobacco Use Status: Never Smoking risk assessment performed?: Yes Alcohol Intake: current Alcohol Intake frequency: a few times a week Alcohol type: beer and hard liquor Drug use: Never Substance use type: does not use Do you feel safe at home: Yes Do you feel safe in your relationship?: Yes Exam Extrem Left upper extremity: hand Hand/finger images: 1. Avulsion type injury with an area of venous ooze Course Vital Signs Vital signs: Vital Signs Temperature 36.8 C 07/04/22 19:44 Pulse 77 07/04/22 19:44 Respiratory Rate 16 07/04/22 19:44 Blood Pressure 136/88 07/04/22 19:44 Temperature 36.8 C 07/04/22 19:44 Temperature Source Oral 07/04/22 19:44 Pulse 77 07/04/22 19:44 Respiratory Rate 16 07/04/22 19:44 Respiratory Effort 07/04/22 19:52 Blood Pressure 136/88 07/04/22 19:44 Blood Pressure Position Sitting 07/04/22 19:44 Oxygen Delivery Method Room Air 07/04/22 19:44 Oxygen Flow Rate 0 07/04/22 19:44 Pain Level 0 07/04/22 19:44
--- NOTE | 2022-07-04 21:11 | DI.VRAD_ITS ---
PROCEDURE INFORMATION: Exam: XR Left Finger(s) Exam date and time: 07/04/2022 8:52 PM Age: 81 years old Clinical indication: Other: Injury, laceration, R/O foreign body, fracture TECHNIQUE: Imaging protocol: Radiologic exam of the Left fingers. Views: Minimum 2 views. COMPARISON: No relevant prior studies available. FINDINGS: Bones/joints: No acute fracture or dislocation. Degenerative changes at the 1st carpal metacarpal joint Soft tissues: Diffuse swelling of the 2nd finger and laceration. No radiopaque foreign body IMPRESSION: No acute fracture Left 2nd finger swelling/laceration. No radiopaque foreign body Dictated and Authenticated by: Andriy Chapa MD. Ordering:KESHA Venegas MD
[2022-07-04] MEDS: Cellulose,Oxidized 2X3 PKT 1 EACH MC (21:28)
== END 2022-07-04 21:54 | disposition home or self-care (01) ==
PROVIDERS: Emergency Provider Registered Nurse Emergency; PCP Family Medicine
DX: S61.211A Laceration without foreign body of left index finger without damage to nail, initial encounter (principal); X58.XXXA Exposure to other specified factors, initial encounter
CPT/HCPCS: 99283; 73140; 99282

== ENCOUNTER 2023-02-11 13:10 | Outpatient (REF) | payer MEDICARE, SELFPAY ==
[2023-02-11 16:05] LABS: ALT 32 U/L (16-63); AST 28 U/L (15-37); Albumin 4.4 g/dL (3.4-5.0); Alkaline Phosphatase 77 U/L (46-116); Anion Gap 7.8 mmol/L (3-11); BUN 25 mg/dL (7-18); Bilirubin, Total 1.4 mg/dL (0.2-1.0); CO2 29.2 mmol/L (21.0-32.0); CREATININE 1.1 mg/dL (0.70-1.30); Calcium 9.8 mg/dL (8.5-10.1); Calculated LDL 118 mg/dL (<100); Chloride 103 mmol/L (98-107); Cholesterol 210 mg/dL (<200); Estimated GFR 67.86 (mL/min/1.73m2); Glucose 90 mg/dL (74-106); HDL Cholesterol 81 mg/dL (40-60); Potassium 5.3 mmol/L (3.5-5.1); Sodium 140 mmol/L (136-145); TSH 3.13 uIU/mL (0.36-3.74); Triglyceride 58 mg/dL (<150)
[2023-02-11 16:16] LABS: Vitamin D 25 Total 42.8 ng/mL (30-100)
[2023-02-11 22:09] LABS: T3,Free 4.5 pg/mL (2.8-5.3)
[2023-02-11 23:01] LABS: PSA, Screening 1.3 ng/mL (<=6.5)
== END 2023-02-11 13:11 | disposition home or self-care (01) ==
LOC: NCHCN 13:10
PROVIDERS: PCP Family Medicine; Visit Provider Family Medicine
DX: E03.9 Hypothyroidism, unspecified (principal); R53.83 Other fatigue; Z00.00 Encounter for general adult medical examination without abnormal findings; N40.0 Benign prostatic hyperplasia without lower urinary tract symptoms; M25.50 Pain in unspecified joint
CPT/HCPCS: 80053; 80061; 82306; 84153; 84439; 84443; 84481

== ENCOUNTER 2023-04-21 10:29 | Outpatient (REF) | payer MEDICARE, SELFPAY ==
[2023-04-21 16:33] LABS: Vitamin D 25 Total 42.2 ng/mL (30-100)
[2023-04-21 17:11] LABS: ALT 34 U/L (16-63); AST 27 U/L (15-37); Albumin 3.9 g/dL (3.4-5.0); Alkaline Phosphatase 79 U/L (46-116); Anion Gap 7.9 mmol/L (3-11); BUN 21 mg/dL (7-18); Bilirubin, Total 0.9 mg/dL (0.2-1.0); CO2 27.1 mmol/L (21.0-32.0); CREATININE 1.1 mg/dL (0.70-1.30); Calcium 9.3 mg/dL (8.5-10.1); Calculated LDL 96 mg/dL (<100); Chloride 104 mmol/L (98-107); Cholesterol 178 mg/dL (<200); Estimated GFR 67.86 (mL/min/1.73m2); Glucose 77 mg/dL (74-106); HDL Cholesterol 65 mg/dL (40-60); Potassium 4.8 mmol/L (3.5-5.1); Sodium 139 mmol/L (136-145); TSH (W/Ref FT4) 2.25 uIU/mL (0.36-3.74); Total Protein 7.1 g/dL (6.4-8.2); Triglyceride 85 mg/dL (<150)
[2023-04-21 22:11] LABS: T3,Free 3.8 pg/mL (2.8-5.3)
== END 2023-04-21 10:30 | disposition home or self-care (01) ==
LOC: NCHCN 10:29
PROVIDERS: PCP Family Medicine; Visit Provider Family Medicine
DX: E03.9 Hypothyroidism, unspecified (principal); Z00.00 Encounter for general adult medical examination without abnormal findings
CPT/HCPCS: 80053; 80061; 82306; 84443; 84481

== ENCOUNTER 2023-07-07 14:29 | Outpatient (CLI) | payer MEDICARE, SELFPAY ==
--- NOTE | 2023-07-07 09:15 | DI.RAD_ITS ---
Exam(s) XR HAND RT COMPLETE EXAM: XR HAND RT COMPLETE CLINICAL HISTORY: RMF PAIN. TECHNIQUE: 2D digital imaging was performed of the right hand. Three images were obtained. AP, late ral and oblique views were obtained. COMPARISON: No priors for comparison. FINDINGS: BONES: No acute fracture is present. No bony destructive lesion is seen. JOINTS: No dislocation present. There uijh-gv-krcwvaaf degenerative changes in the right hand and wri st characterized by joint space narrowing and osteophytes. The findings are most marked in the DIP j oint of the index finger. However, degenerative changes are also seen at the DIP joint of the middle finger. SOFT TISSUE: There is a 2-3 mm density in the soft tissues anterior to the distal phalanx in the mi ddle finger. IMPRESSION: 1. Degenerative changes in the hand as described above. Findings can be seen in the DIP joint of the middle finger. 2. 2-3 mm density in the soft tissues anterior to the distal phalanx of uncertain clinical significan ce. DATA REPOSITORY: RADIATION DOSE DELIVERED:
== END 2023-07-07 14:30 | disposition home or self-care (01) ==
LOC: DIORS 14:29
PROVIDERS: PCP Family Medicine; Referring Provider Family Medicine
DX: M79.644 Pain in right finger(s) (principal); M65.9 Synovitis and tenosynovitis, unspecified
CPT/HCPCS: 99213; 73130

== ENCOUNTER 2024-06-22 16:28 | Outpatient (REF) | payer MEDICARE, SELFPAY ==
[2024-06-22 18:34] LABS: Abs Immature Grans 0.01 10^3/uL (0.0-0.06); Absolute Basophil Count 0.03 10^3/uL (0.0-0.2); Absolute Lymphocyte Count 2.93 10^3/uL (1.2-3.4); Absolute Monocyte Count 0.57 10^3/uL (0.1-0.8); Absolute Neutrophil Count 2.55 10^3/uL (1.2-6.7); Basophils % 0.5 %; Eosinophils % 1.6 %; HCT 40.5 % (40.0-50.0); HGB 13.4 g/dL (13.5-17.5); Immature Grans % 0.2 %; Lymphocytes % 47.3 %; MCH 33.1 pg (27.0-33.0); MCHC 33.1 % (32.0-36.0); MCV 100 fL (80-95); MPV 10.4 fL (8.0-11.0); Monocytes % 9.2 %; Neutrophils % 41.2 %; Platelet Count 211 10^3/uL (130-400); RBC 4.05 10^6/uL (4.36-5.78); RDW 12.6 % (11.8-14.1); WBC 6.19 10^3/uL (4.4-10.8)
[2024-06-22 18:56] LABS: Anion Gap 9.1 mmol/L (3-11); BUN 26 mg/dL (7-18); CO2 24.9 mmol/L (21.0-32.0); Calcium 9.2 mg/dL (8.5-10.1); Chloride 109 mmol/L (98-107); Estimated GFR 75.61 (mL/min/1.73m2); Glucose 97 mg/dL (74-106); Potassium 4.2 mmol/L (3.5-5.1); Sodium 143 mmol/L (136-145); TSH (W/Ref FT4) 1.62 uIU/mL (0.36-3.74)
== END 2024-06-22 16:29 | disposition home or self-care (01) ==
LOC: NCHCN 16:28
PROVIDERS: PCP Family Medicine; Visit Provider Family Medicine
DX: E03.9 Hypothyroidism, unspecified (principal)
CPT/HCPCS: 80048; 84443; 85025

== ENCOUNTER 2024-12-20 13:10 | Outpatient (CLI) | payer MEDICARE, SELFPAY ==
--- NOTE | 2024-12-20 | DI.RAD_ITS ---
Exam(s) XR HAND RT COMPLETE EXAM: XR HAND RT COMPLETE CLINICAL HISTORY: Rt hand effusion, M25.441; Chronic pain at CMC joint for years, new onset. TECHNIQUE: 2D digital imaging was performed of the right hand. Four images were obtained. AP, later al and oblique views were obtained. COMPARISON: CR XR HAND RT COMPLETE from 07/07/2023 FINDINGS: BONES: No acute fracture is present. No bony destructive lesion is seen. JOINTS: No dislocation present. Degenerative changes are seen in the hand and wrist characterized by joint space narrowing and osteophytes. There are mild degenerative changes seen at the 1st CMC joint . SOFT TISSUE: There did is soft tissue swelling of the index finger. No soft tissue gas or radiopaque foreign bodies are seen. IMPRESSION: Mild degenerative changes of the hand and wrist. DATA REPOSITORY: RADIATION DOSE DELIVERED:
== END 2024-12-20 13:30 ==
PROVIDERS: PCP Family Medicine; Visit Provider Nurse Practitioner Family
DX: M19.041 Primary osteoarthritis, right hand (principal)
CPT/HCPCS: 73130

== ENCOUNTER 2024-12-20 16:16 | Outpatient (REF) | payer MEDICARE, SELFPAY ==
[2024-12-20 15:03] LABS: Abs Immature Grans 0.01 10^3/uL (0.0-0.06); Absolute Basophil Count 0.03 10^3/uL (0.0-0.2); Absolute Eosinophil Count 0.08 10^3/uL (0.0-0.7); Absolute Lymphocyte Count 3.59 10^3/uL (1.2-3.4); Absolute Monocyte Count 0.83 10^3/uL (0.1-0.8); Absolute Neutrophil Count 3.35 10^3/uL (1.2-6.7); Basophils % 0.4 %; HCT 40.1 % (40.0-50.0); HGB 13.6 g/dL (13.5-17.5); Immature Grans % 0.1 %; Lymphocytes % 45.5 %; MCH 32.9 pg (27.0-33.0); MCHC 33.9 % (32.0-36.0); MCV 97 fL (80-95); MPV 10.8 fL (8.0-11.0); Monocytes % 10.5 %; Neutrophils % 42.5 %; Platelet Count 213 10^3/uL (130-400); RBC 4.13 10^6/uL (4.36-5.78); RDW 12.3 % (11.8-14.1); RDW-SD 44.3 fL; WBC 7.89 10^3/uL (4.4-10.8)
[2024-12-20 15:14] LABS: Uric Acid 3.9 mg/dL (3.5-7.2)
[2024-12-21 09:04] LABS: Lyme Ab w Rflx to Lyme Confirm Positive (Negative)
[2024-12-21 10:35] LABS: Lyme IgG Ab Positive (Negative); Lyme IgM Ab Negative (Negative)
== END 2024-12-20 16:17 | disposition home or self-care (01) ==
LOC: LBN 16:16
PROVIDERS: PCP Family Medicine; Visit Provider Nurse Practitioner Family
DX: M25.441 Effusion, right hand (principal)
CPT/HCPCS: 86617; 84550; 85025; 86618

== ENCOUNTER 2024-12-28 21:49 | Outpatient (REF) | payer MEDICARE, SELFPAY ==
[2024-12-28 21:58] LABS: ESR 14 mm/hr (0-20)
[2024-12-28 22:11] LABS: C-Reactive Protein < 0.50 mg/dL (<or=0.5)
== END 2024-12-28 21:50 | disposition home or self-care (01) ==
LOC: NCHCN 21:49
PROVIDERS: PCP Family Medicine; Visit Provider Family Medicine
DX: R51.9 Headache, unspecified (principal)
CPT/HCPCS: 85652; 86140

== ENCOUNTER 2025-01-03 00:49 | Outpatient (CLI) | payer MEDICARE, SELFPAY ==
--- NOTE | 2025-01-03 13:09 | DI.RAD_ITS ---
Exam(s) XR KNEE RT 3V AP,LAT,STORMY EXAM: XR KNEE RT 3V AP,LAT,STORMY CLINICAL HISTORY: [place] CHRONIC KNEE PAIN,M25.561, M25.562, G89.29. TECHNIQUE: 2D digital imaging was performed. Three views. COMPARISON: No exams were available for comparison FINDINGS: BONES: No acute fracture is present. No bony destructive lesion is seen. JOINTS: There is severe narrowing of the medial femoral tibial joint and periarticular spurring. Thi s causes mild varus angulation and widening of the lateral femoral tibial joint space. There is mild spurring at the articular aspect of the patella. No joint effusion is seen. SOFT TISSUE: Mild vascular calcifications. IMPRESSION: Advanced degenerative changes of the medial femoral tibial joint. DATA REPOSITORY: RADIATION DOSE DELIVERED:
--- NOTE | 2025-01-03 13:10 | DI.RAD_ITS ---
Exam(s) XR KNEE LT 3V AP,LAT,STORMY EXAM: XR KNEE LT 3V AP,LAT,STORMY CLINICAL HISTORY: [place] CHRONIC KNEE PAIN, M25.561, M25.562, CHRONIC PAIN, G89.29. TECHNIQUE: 2D digital imaging was performed. Three views. COMPARISON: CR XR KNEE RT 3V AP,LAT,STORMY from 01/03/2025 FINDINGS: BONES: No acute fracture is present. No bony destructive lesion is seen. Small enthesophyte at tib ial tubercle. JOINTS: There is moderate to severe narrowing of the medial femoral tibial joint space. Remaining cal int spaces are maintained. There is minimal periarticular spurring. No joint effusion is seen. SOFT TISSUE: Vascular calcifications. On chronic appearing calcification medial to the medial femora l tibial joint. IMPRESSION: Moderate degenerative changes medial femoral tibial joint. DATA REPOSITORY: RADIATION DOSE DELIVERED:
== END 2025-01-03 01:09 ==
LOC: DI 00:50
PROVIDERS: PCP Family Medicine; Visit Provider Family Medicine
DX: M17.0 Bilateral primary osteoarthritis of knee (principal)
CPT/HCPCS: 73562

== ENCOUNTER → 2025-01-20 14:53 | Outpatient (BNVA) | payer MEDICARE, SELFPAY | PROVIDERS: PCP Family Medicine; Referring Provider Family Medicine; Visit Provider Physician Assistant | DX: M18.11 Unilateral primary osteoarthritis of first carpometacarpal joint, right hand (principal); M79.644 Pain in right finger(s) | CPT/HCPCS: 20604; J1010 ==

== ENCOUNTER 2025-04-26 15:28 | Outpatient (REF) | payer MEDICARE, SELFPAY ==
[2025-04-26 15:50] LABS: Abs Immature Grans 0.01 10^3/uL (0.0-0.06); HCT 44.5 % (40.0-50.0); HGB 14.7 g/dL (13.5-17.5); Immature Grans % 0.1 %; MCH 32.2 pg (27.0-33.0); MCHC 33.0 % (32.0-36.0); MCV 98 fL (80-95); MPV 10.3 fL (8.0-11.0); Platelet Count 235 10^3/uL (130-400); RBC 4.56 10^6/uL (4.36-5.78); RDW 12.3 % (11.8-14.1); RDW-SD 44.7 fL; WBC 8.79 10^3/uL (4.4-10.8)
[2025-04-26 15:57] LABS: ESR 13 mm/hr (0-20)
[2025-04-26 16:21] LABS: ALT 29 U/L (16-63); AST 27 U/L (15-37); Albumin 4.2 g/dL (3.4-5.0); Alkaline Phosphatase 87 U/L (46-116); Anion Gap 9.4 mmol/L (3-11); BUN 18 mg/dL (7-18); Bilirubin, Total 0.9 mg/dL (0.2-1.0); CO2 28.6 mmol/L (21.0-32.0); Calcium 9.2 mg/dL (8.5-10.1); Calculated LDL 119 mg/dL (<100); Chloride 104 mmol/L (98-107); Cholesterol 199 mg/dL (<200); Estimated GFR 85.27 (mL/min/1.73m2); Glucose 102 mg/dL (74-106); HDL Cholesterol 64 mg/dL (>or=40); Potassium 4.6 mmol/L (3.5-5.1); Sodium 142 mmol/L (136-145); TSH (W/Ref FT4) 2.18 uIU/mL (0.36-3.74); Total Protein 7.4 g/dL (6.4-8.2); Triglyceride 83 mg/dL (<150)
== END 2025-04-26 15:29 | disposition home or self-care (01) ==
LOC: NCHCN 15:28
PROVIDERS: PCP Family Medicine; Visit Provider Family Medicine
DX: G45.9 Transient cerebral ischemic attack, unspecified (principal); E03.9 Hypothyroidism, unspecified
CPT/HCPCS: 80053; 80061; 85652; 84443; 85025

== ENCOUNTER 2025-07-05 16:34 | Emergency (ER) | payer MEDICARE, SELFPAY ==
[2025-07-05 17:00] VITALS: BP 125/79; PULSE 76; RESP 18; TEMP 36.7; O2SAT 94
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
== END 2025-07-05 19:47 | disposition home or self-care (01) ==
PROVIDERS: Emergency Provider Registered Nurse Emergency; PCP Family Medicine
DX: S61.412A Laceration without foreign body of left hand, initial encounter (principal); W26.8XXA Contact with other sharp object(s), not elsewhere classified, initial encounter
CPT/HCPCS: 12001